=== PATIENT | male | born 1955 | race Caucasian/White ===

== ENCOUNTER 2017-04-09 08:53 | Inpatient (IN) | payer MEDICARE, SELFPAY ==
[~2017-04-09] VITALS: Ht 160 cm; Wt 102.3 kg
[~2017-04-09 08:53] MED LIST: ALBIPROI; ALBIPROI INH; ALBU.083IS; ALBU.083IS IH; ALBU3IS INH; ALBU90OI INH; ALBU90OI6 INH; ALBUIS IH; ALPR.25; AMOX1XR PO; ASPI81CH PO; AZIT250 PO; AZIT500 PO; BENZ100A PO; BUDE6HFA INH; CEPH500 PO; CIPR500 PO; CLIN300 PO; CLON1 PO; DIAZ2 PO; DULO60 PO; DUTA.5 PO; FLUC100 PO; FURO40 PO; GABA300; GABA300 PO; GEMF600 PO; GLIM2 PO; GLIP10 PO; GLIP5 PO; GLYB5 PO; GUAI600T33 PO; HYDACE10B PO; HYDACE5; HYDACE5 PO; HYDCHL25 PO; IBUP400 PO; INSDET100 SC; INSDET100 SQ; INSN100I SC; INSR10I SC; INSUASPI SC; IPRAIS NEB; LIDO5TP TOP; LIRA0.6P INJ; LISI10 PO; LISI5 PO; LORA.5 PO; LORA1 PO; LORA2 PO; METO5 PO; METPRE4DP PO; MONT10T PO; MUPI2TO TOP; NEBULIZER INH; NEUROPATHIC CREAM TOP; NITR.4SL SL; NITR.4TPA TOP; NITR.6SL SL; NYST100SU MT; Norco 10-325 T1 EACH PO; OMEP20ER PO; OXYACE5T PO; OXYGEN; OXYGEN INH; OXYGEN USE; PARO10 PO; PIOG15 PO; POLY17UD PO; PRED10 PO; PRED20 PO; PREG200 PO; RANI150 PO; SALMOI6.5 INH; SPIR25 PO; SULTRIDS PO; SYMBACORT INH; Saw Palmetto500 MG PO; TAMS.4ER PO; TERA5 PO; TETR250; TOPICAL CREAM TOP; Vibramycin100 MG PO; [UNRECOGNIZED DRUG - MIXTURE]
[2017-04-09 09:42] LABS: BASOPHILS ABSOLUTE AUTO 0.01 K/mm3 (0.00-0.23); BASOPHILS PERCENT AUTO 0 % (0-2); EOSINOPHILS ABSOLUTE AUTO 0.01 K/mm3 (0.00-0.68); EOSINOPHILS PERCENT AUTO 0 % (0-6); Hematocrit 40.5 % (37.0-53.0); Hemoglobin 13.1 g/dL (13.5-17.5); IMMATURE GRAN ABSOLUTE AUTO 0.08 K/mm3 (0.00-0.10); IMMATURE GRAN PERCENT AUTO 1 % (0-1); LYMPHOCYTES ABSOLUTE AUTO 0.69 K/mm3 (0.84-5.20); LYMPHOCYTES PERCENT AUTO 6 % (21-46); MONOCYTES ABSOLUTE AUTO 1.28 K/mm3 (0.16-1.47); MONOCYTES PERCENT AUTO 11 % (4-13); Mean Corpuscular HGB Conc 32.3 g/dL (31.5-36.5); Mean Corpuscular Volume 93 fL (80-100); Mean Platelet Volume 10.1 fL (9.1-12.4); NEUTROPHILS PERCENT AUTO 82 % (41-73); Platelet Count 266 K/mm3 (150-400); RDW Coefficient Variation 14.3 % (11.7-14.2); RDW Standard Deviation 48.3 fL (35.1-46.3); Red Blood Cell Count 4.37 M/mm3 (4.30-5.90); White Blood Cell Count 11.27 K/mm3 (4.00-11.30)
[2017-04-09] MEDS ORDERED: NYST100000 (09:46)
[2017-04-09] MEDS ORDERED: BUDE6HFA INH (09:47)
[2017-04-09] MEDS ORDERED: LEVA1.25 INH (09:47)
[2017-04-09] MEDS ORDERED: PRED10 PO (09:47)
[2017-04-09] MEDS ORDERED: TRADJENTA5 MG PO (09:48)
[2017-04-09] MEDS ORDERED: ASPI81CH PO (09:48)
[2017-04-09] MEDS ORDERED: TOPI100 PO (09:48)
[2017-04-09] MEDS ORDERED: Zanaflex4 MG PO (09:49)
[2017-04-09] MEDS ORDERED: TAMS.4ER PO (09:49)
[2017-04-09] MEDS ORDERED: FURO40 PO (09:49)
[2017-04-09] MEDS ORDERED: GLIP10 PO (09:49)
[2017-04-09] MEDS ORDERED: Saw Palmetto500 MG PO (09:50)
[2017-04-09] MEDS ORDERED: SPIR25 PO (09:50)
[2017-04-09] MEDS ORDERED: COMBIVENT RESPIM4 GM INH (09:50)
[2017-04-09] MEDS ORDERED: ALBU3IS INH (09:51)
[2017-04-09] MEDS ORDERED: INSDET100 SC (09:51)
[2017-04-09] MEDS ORDERED: MONT10T PO (09:51)
[2017-04-09] MEDS ORDERED: Omeprazole20 M1 PO (09:51)
[2017-04-09] MEDS ORDERED: Humalog100 UNIT/1 SC (09:52)
[2017-04-09 10:01] LABS: Influenza A Positive (NEGATIVE); Influenza B Negative (NEGATIVE)
[2017-04-09 10:05] LABS: Troponin I <0.015 ng/mL (0.000-0.040)
[2017-04-09 10:27] LABS: PCO2 Arterial 50.8 mmHg (35-45); PO2 Arterial 73.4 mmHg (80-100); pH Blood Arterial 7.28 (7.35-7.45)
[2017-04-09 10:30] LABS: Anion Gap 8 mmol/L (6-16); Blood Urea Nitrogen 21 mg/dL (8-24); Bun/Creatinine Ratio 19.8 (12.0-20.0); CO2, Blood 26 mmol/L (21-32); Calcium, Blood 8.6 mg/dL (8.5-10.1); Chloride, Blood 105 mmol/L (98-108); Creatinine, Blood 1.06 mg/dL (0.60-1.20); Glomerular Filtration Rate >60 (60-); Glucose, Blood 192 mg/dL (70-99); Potassium, Blood 4.5 mmol/L (3.5-5.5); Sodium, Blood 139 mmol/L (136-145)
[2017-04-09 13:45] LABS: International Normalized Ratio 1.03; Prothrombin Time Results 10.7 Sec (9.7-11.5)
[2017-04-09 14:46] LABS: Appearance, Urine Clear (Clear); Bilirubin, Urine Neg (Neg); Blood, Urine 2+ (Neg); Color, Urine Yellow (P-Yellow); Glucose Qualitative, Urine 4+ (Neg); Ketones, Urine Neg (Neg); Leukocyte Esterase, Urine Neg (Neg); Nitrite, Urine Neg (Neg); Protein, Urine 1+ (Neg); Urobilinogen, Urine NORM (Normal)
[2017-04-09 15:19] LABS: Bacteria Rare /hpf; Red Blood Cells, Urine 0-2 /hpf (0-2); Squamous Epithelial Cells Rare /hpf (Few); White Blood Cells, Urine 0-2 /hpf (0-5)
[2017-04-10 04:01] LABS: BASOPHILS PERCENT AUTO 0 % (0-2); EOSINOPHILS PERCENT AUTO 0 % (0-6); Hematocrit 36.2 % (37.0-53.0); Hemoglobin 11.6 g/dL (13.5-17.5); IMMATURE GRAN ABSOLUTE AUTO 0.04 K/mm3 (0.00-0.10); IMMATURE GRAN PERCENT AUTO 0 % (0-1); LYMPHOCYTES ABSOLUTE AUTO 0.66 K/mm3 (0.84-5.20); LYMPHOCYTES PERCENT AUTO 7 % (21-46); MONOCYTES ABSOLUTE AUTO 0.45 K/mm3 (0.16-1.47); MONOCYTES PERCENT AUTO 5 % (4-13); Mean Corpuscular HGB 29.7 pg (26.0-34.0); Mean Corpuscular Volume 93 fL (80-100); Mean Platelet Volume 9.9 fL (9.1-12.4); NEUTROPHILS ABSOLUTE AUTO 8.34 K/mm3 (1.96-9.15); NEUTROPHILS PERCENT AUTO 88 % (41-73); Platelet Count 237 K/mm3 (150-400); RDW Coefficient Variation 14.6 % (11.7-14.2); RDW Standard Deviation 49.6 fL (35.1-46.3); White Blood Cell Count 9.49 K/mm3 (4.00-11.30)
[2017-04-10 04:16] LABS: Anion Gap 5 mmol/L (6-16); Blood Urea Nitrogen 24 mg/dL (8-24); Bun/Creatinine Ratio 31.1 (12.0-20.0); CO2, Blood 28 mmol/L (21-32); Calcium, Blood 7.9 mg/dL (8.5-10.1); Chloride, Blood 108 mmol/L (98-108); Creatinine, Blood 0.77 mg/dL (0.60-1.20); Glomerular Filtration Rate >60 (60-); Glucose, Blood 206 mg/dL (70-99); Potassium, Blood 4.5 mmol/L (3.5-5.5); Sodium, Blood 141 mmol/L (136-145)
[2017-04-10 05:33] LABS: PCO2 Arterial 50.5 mmHg (35-45); pH Blood Arterial 7.34 (7.35-7.45)
[2017-04-11 03:49] LABS: BASOPHILS PERCENT AUTO 0 % (0-2); EOSINOPHILS PERCENT AUTO 0 % (0-6); Hematocrit 37.6 % (37.0-53.0); Hemoglobin 12.2 g/dL (13.5-17.5); IMMATURE GRAN ABSOLUTE AUTO 0.08 K/mm3 (0.00-0.10); IMMATURE GRAN PERCENT AUTO 1 % (0-1); LYMPHOCYTES ABSOLUTE AUTO 0.89 K/mm3 (0.84-5.20); LYMPHOCYTES PERCENT AUTO 6 % (21-46); MONOCYTES ABSOLUTE AUTO 0.82 K/mm3 (0.16-1.47); MONOCYTES PERCENT AUTO 6 % (4-13); Mean Corpuscular HGB 29.8 pg (26.0-34.0); Mean Corpuscular HGB Conc 32.4 g/dL (31.5-36.5); Mean Corpuscular Volume 92 fL (80-100); NEUTROPHILS ABSOLUTE AUTO 13.17 K/mm3 (1.96-9.15); NEUTROPHILS PERCENT AUTO 88 % (41-73); Platelet Count 254 K/mm3 (150-400); RDW Coefficient Variation 14.1 % (11.7-14.2); RDW Standard Deviation 47.3 fL (35.1-46.3); White Blood Cell Count 14.96 K/mm3 (4.00-11.30)
[2017-04-11 04:06] LABS: Anion Gap 7 mmol/L (6-16); Blood Urea Nitrogen 35 mg/dL (8-24); Bun/Creatinine Ratio 34.7 (12.0-20.0); CO2, Blood 29 mmol/L (21-32); Calcium, Blood 8.2 mg/dL (8.5-10.1); Chloride, Blood 103 mmol/L (98-108); Creatinine, Blood 1.01 mg/dL (0.60-1.20); Glomerular Filtration Rate >60 (60-); Glucose, Blood 305 mg/dL (70-99); Potassium, Blood 4.2 mmol/L (3.5-5.5); Sodium, Blood 139 mmol/L (136-145)
[2017-04-11] MEDS ORDERED: Tamiflu75 MG PO (09:23)
== END 2017-04-11 10:30 | disposition home or self-care (01) | DRG 871 ==
LOC: ER 08:53 → ICUE 11:10 → ICUW 11:10 → ICUE 12:46
PROVIDERS: Emergency Medicine; Internal Medicine
DX: A41.9 Sepsis, unspecified organism (principal); J96.02 Acute respiratory failure with hypercapnia; E87.2 Acidosis; J44.1 Chronic obstructive pulmonary disease with (acute) exacerbation; B37.0 Candidal stomatitis; Z68.41 Body mass index [BMI] 40.0-44.9, adult; E66.01 Morbid (severe) obesity due to excess calories; J11.1 Influenza due to unidentified influenza virus with other respiratory manifestations; G47.30 Sleep apnea, unspecified; E11.42 Type 2 diabetes mellitus with diabetic polyneuropathy; Z99.81 Dependence on supplemental oxygen; I10 Essential (primary) hypertension; I25.10 Atherosclerotic heart disease of native coronary artery without angina pectoris; K21.9 Gastro-esophageal reflux disease without esophagitis; R65.20 Severe sepsis without septic shock; F17.200 Nicotine dependence, unspecified, uncomplicated; E66.9 Obesity, unspecified; Z89.412 Acquired absence of left great toe; Z88.1 Allergy status to other antibiotic agents; Z88.8 Allergy status to other drugs, medicaments and biological substances; Z79.84 Long term (current) use of oral hypoglycemic drugs; Z79.82 Long term (current) use of aspirin; Z79.4 Long term (current) use of insulin; Z79.52 Long term (current) use of systemic steroids; Z79.899 Other long term (current) drug therapy
CPT/HCPCS: 36415; 36600; 71045; 80048; 81001; 82010; 82803; 82947; 83605; 84484; 85025; 85610; 85730; 87040; 87070; 87205; 87804; 93005; 93010; 94640; 94644; 94660; 96361; 96374; 96375; 99285; C9113; J0696; J1650; J1815; J2060; J2930; J7030

== ENCOUNTER 2018-12-26 06:56 | Day surgery (SDC) | payer MEDICARE, OTHER ==
[~2018-12-26] VITALS: Ht 162.6 cm; Wt 101.0 kg
[~2018-12-26 06:56] MED LIST changes: +B-122500 MCG SL; +COMBIVENT RESPIM4 GM INH; +Humalog100 UNIT/1 SC; +LEVA1.25 INH; +NYST100000; +Omeprazole20 M1 PO; +TOPI100 PO; +TRADJENTA5 MG PO; +Tamiflu75 MG PO; +VITAMIN D35000 UNIT PO; +Vitamin E400 UNI4 PO; +Zanaflex4 MG PO
[2018-12-26] MEDS ORDERED: CLOP75 PO (11:20)
--- NOTE | 2018-12-26 13:50 | NUR ---
RIGHT GROIN SITE STABLE. PT VERBALIZED UNDERSTANDING OF D/C INSTRUCTIONS. SITE SOFT NON TENDER WITH NO BLEEDING, OOZING, OR PAIN NOTED. TEGADERM INTACT. PT ALSO PRESENT DURING DISCHARGE INSTRUCTIONS. DR SWENSON (ORTHO) CALLED PRIOR TO DISCHARGING PT HOME. PT IS SUPPOSED TO HAVE TOES REMOVED FROM LEFT FOOT ON TUESDAY THIS WEEK 12/29/18, PT HAS ALSO BEEN STARTED ON PLAVIX. PER DR SWENSON PT NEEDS TO START PLAVIX ON TUESDAY AFTER HIS SURGERY. PT HAS BEEN INFORMED, NEW MEDICATION CALLED INTO PHARMACY FOR PT. OTHER DISCHARGE INSTRUCTIONS PROVIDED TO PT IN [facility]. IV REMOVED FROM LFA WITH CATH INTACT, PRESSURE DRESSING APPLIED. PT TAKEN OUT TO PRIVATE VEHICLE VIA W/C NADN AT TIME OF DISCHARGE.
[2019-01-08] MEDS ORDERED: TIZA4 PO (11:56)
[2019-01-08] MEDS ORDERED: TOPI100 PO (11:56)
== END 2018-12-26 13:50 | disposition home or self-care (01) ==
LOC: MHTC 06:56
DX: E11.51 Type 2 diabetes mellitus with diabetic peripheral angiopathy without gangrene (principal); I70.222 Atherosclerosis of native arteries of extremities with rest pain, left leg; I10 Essential (primary) hypertension; I25.10 Atherosclerotic heart disease of native coronary artery without angina pectoris; J44.9 Chronic obstructive pulmonary disease, unspecified; F41.9 Anxiety disorder, unspecified; F32.9 Major depressive disorder, single episode, unspecified; K21.9 Gastro-esophageal reflux disease without esophagitis; N40.0 Benign prostatic hyperplasia without lower urinary tract symptoms; G47.33 Obstructive sleep apnea (adult) (pediatric); Z88.8 Allergy status to other drugs, medicaments and biological substances; Z79.4 Long term (current) use of insulin; Z79.899 Other long term (current) drug therapy; Z79.82 Long term (current) use of aspirin
CPT/HCPCS: 37221; 37226; 37228; 37232; 75625; 75716; 75774; 82947; 85347; 99152; 99153; C1725; C1760; C1769; C1874; C1876; C1887; C1894; C2623; J1644; J2250; J3010; J7030; Q9967

== ENCOUNTER 2018-12-29 09:02 | Day surgery (SDC) | payer MEDICARE, OTHER ==
[~2018-12-29] VITALS: Ht 160 cm; Wt 108.7 kg
[~2018-12-29 09:02] MED LIST changes: +CLOP75 PO
[2018-12-29] MEDS ORDERED: NYST100000 PO (10:41)
[2018-12-29] MEDS ORDERED: PIOG15 PO (10:42)
[2019-01-08] MEDS ORDERED: TIZA4 PO (11:56)
[2019-01-08] MEDS ORDERED: TOPI100 PO (11:56)
== END 2018-12-29 12:30 | disposition home or self-care (01) ==
LOC: ORSCSDS 09:02
PROVIDERS: Podiatrist Foot & Ankle Surgery
PROC: 0Y6N0Z9 Detachment at Left Foot, Partial 1st Ray, Open Approach (ICD-10-PCS; principal; 2018-12-29 10:30)
PROC: 0Y6N0ZD Detachment at Left Foot, Partial 4th Ray, Open Approach (ICD-10-PCS; principal; 2018-12-29 10:30)
PROC: 0Y6N0ZF Detachment at Left Foot, Partial 5th Ray, Open Approach (ICD-10-PCS; principal; 2018-12-29 10:30)
PROC: 0Y6N0ZB Detachment at Left Foot, Partial 2nd Ray, Open Approach (ICD-10-PCS; principal; 2018-12-29 10:30)
PROC: 0Y6N0ZC Detachment at Left Foot, Partial 3rd Ray, Open Approach (ICD-10-PCS; principal; 2018-12-29 10:30)
DX: M86.9 Osteomyelitis, unspecified (principal); E11.621 Type 2 diabetes mellitus with foot ulcer; E11.52 Type 2 diabetes mellitus with diabetic peripheral angiopathy with gangrene; I96 Gangrene, not elsewhere classified; I25.10 Atherosclerotic heart disease of native coronary artery without angina pectoris; J44.9 Chronic obstructive pulmonary disease, unspecified; G47.33 Obstructive sleep apnea (adult) (pediatric); Z99.81 Dependence on supplemental oxygen; F17.210 Nicotine dependence, cigarettes, uncomplicated; E66.01 Morbid (severe) obesity due to excess calories; Z68.41 Body mass index [BMI] 40.0-44.9, adult; Z79.4 Long term (current) use of insulin; Z79.899 Other long term (current) drug therapy
CPT/HCPCS: 82947; 88307; 88311; J0171; J0690; J2250; J2704; J3010; J7120

== ENCOUNTER 2019-01-09 06:50 | Day surgery (SDC) | payer MEDICARE ==
[~2019-01-09] VITALS: Ht 162.6 cm; Wt 101.0 kg
[~2019-01-09 06:50] MED LIST changes: +NYST100000 PO; +TIZA4 PO
--- NOTE | 2019-01-09 13:30 | NUR ---
PT SITTING UP WITH HOB AT 30, SITE UNCHANGED.
--- NOTE | 2019-01-09 13:46 | NUR ---
PT AND VERBALIZED UNDERSTANDING OF WRITTEN AND VERBAL D/C INST. -BLEEDING OR SWELLING L GROIN AREA. IV REMOVED. PT TAKEN OUT OF THE HRT CENTER VIA W/C.
== END 2019-01-09 14:00 | disposition home or self-care (01) ==
LOC: MHTC 06:50
DX: I70.201 Unspecified atherosclerosis of native arteries of extremities, right leg (principal); E13.59 Other specified diabetes mellitus with other circulatory complications; J44.9 Chronic obstructive pulmonary disease, unspecified; I10 Essential (primary) hypertension; Z88.8 Allergy status to other drugs, medicaments and biological substances; Z88.5 Allergy status to narcotic agent; Z89.429 Acquired absence of other toe(s), unspecified side
CPT/HCPCS: 37227; 37228; 37232; 75716; 75774; 82947; 85347; 99152; 99153; C1714; C1725; C1760; C1769; C1874; C1884; C1887; C1894; C2623; J1644; J2250; J3010; J7030; Q9967

== ENCOUNTER 2019-03-22 06:40 | Day surgery (SDC) | payer MEDICARE, OTHER ==
[~2019-03-22] VITALS: Ht 162.6 cm; Wt 108.0 kg
[2019-03-22] MEDS ORDERED: VARE1 PO (07:10)
--- NOTE | 2019-03-22 12:12 | NUR ---
PT UNABLE TO URINATE WITH URINAL WHILE LAYING DOWN FLAT. PT ATTEMPTED TO REPOSITION, WAS STILL UNABLE TO URINATE. PER ORDERS PT WAS STRAIGHT CATHED USING STERILE TECHNIQUE WITH 14F COUDE CACERES. PT TOLERATES WELL. APPROX 400CC OF CLEAR, YELLOW URINE NOTED. VSS. NADN. PT R FEMORAL SITE REMAINS CLEAR. CALL LIGHT WITHIN REACH.
--- NOTE | 2019-03-22 13:13 | NUR ---
PT ASSISTED WITH DRESSING SELF. R FEM SITE REMAINS CLEAR. PT AND S/O VERBALIZES UNDERSTANDING WRITTEN AND VERBAL ORDERS. PT IV DC'D. CATH INTACT. PRESSURE DSG APPLIED. PT DC TO HOME VIA S/O WITH WC.
== END 2019-03-22 13:15 | disposition home or self-care (01) ==
LOC: MHTC 06:40
DX: E11.51 Type 2 diabetes mellitus with diabetic peripheral angiopathy without gangrene (principal); E11.40 Type 2 diabetes mellitus with diabetic neuropathy, unspecified; J44.9 Chronic obstructive pulmonary disease, unspecified; I25.10 Atherosclerotic heart disease of native coronary artery without angina pectoris; F41.9 Anxiety disorder, unspecified; F32.9 Major depressive disorder, single episode, unspecified; K21.9 Gastro-esophageal reflux disease without esophagitis; N40.0 Benign prostatic hyperplasia without lower urinary tract symptoms; G47.33 Obstructive sleep apnea (adult) (pediatric); F17.210 Nicotine dependence, cigarettes, uncomplicated; I10 Essential (primary) hypertension; Z95.5 Presence of coronary angioplasty implant and graft; Z88.1 Allergy status to other antibiotic agents; Z88.5 Allergy status to narcotic agent; Z88.8 Allergy status to other drugs, medicaments and biological substances; Z79.4 Long term (current) use of insulin; Z79.52 Long term (current) use of systemic steroids; Z79.82 Long term (current) use of aspirin; Z79.02 Long term (current) use of antithrombotics/antiplatelets; Z79.51 Long term (current) use of inhaled steroids; Z79.899 Other long term (current) drug therapy
CPT/HCPCS: 37229; 37232; 75716; 75774; 76937; 85347; 99152; 99153; C1724; C1725; C1760; C1769; C1887; C1894; J1644; J2250; J3010; J7030; Q9967

== ENCOUNTER 2019-05-02 00:21 | Day surgery (SDC) | payer MEDICARE, OTHER ==
[~2019-05-02 00:21] MED LIST changes: +VARE1 PO
== END 2019-05-02 23:04 | disposition home or self-care (01) ==
LOC: WOUND 00:21
DX: E11.621 Type 2 diabetes mellitus with foot ulcer (principal); E11.42 Type 2 diabetes mellitus with diabetic polyneuropathy; L97.526 Non-pressure chronic ulcer of other part of left foot with bone involvement without evidence of necrosis; F17.210 Nicotine dependence, cigarettes, uncomplicated; J44.9 Chronic obstructive pulmonary disease, unspecified; I10 Essential (primary) hypertension; E11.51 Type 2 diabetes mellitus with diabetic peripheral angiopathy without gangrene; F41.9 Anxiety disorder, unspecified; F32.9 Major depressive disorder, single episode, unspecified; G47.33 Obstructive sleep apnea (adult) (pediatric); Z79.4 Long term (current) use of insulin; Z88.5 Allergy status to narcotic agent; Z88.8 Allergy status to other drugs, medicaments and biological substances; Z79.899 Other long term (current) drug therapy; Z79.82 Long term (current) use of aspirin
CPT/HCPCS: 87070; 87075; 87205; G0463

== ENCOUNTER 2019-05-09 00:16 | Day surgery (SDC) | payer MEDICARE, OTHER | END 2019-05-09 22:52 | disposition home or self-care (01) | LOC: WOUND 00:16 | DX: E11.621 Type 2 diabetes mellitus with foot ulcer (principal); E11.51 Type 2 diabetes mellitus with diabetic peripheral angiopathy without gangrene; L97.522 Non-pressure chronic ulcer of other part of left foot with fat layer exposed; Z79.4 Long term (current) use of insulin ==

== ENCOUNTER 2019-05-17 06:28 | Day surgery (SDC) | payer MEDICARE, OTHER ==
[~2019-05-17] VITALS: Ht 162.6 cm; Wt 101.0 kg
--- NOTE | 2019-05-17 12:17 | NUR ---
PT STOOD UP TO BEDISIDE AND USED URINAL, VOIDED 300 ML'S CLEAR YELLOW URINE. LEFT GROIN SITE SOFT WITHOUT HEMATOMA OR TENDERNESS.
--- NOTE | 2019-05-17 13:03 | NUR ---
DISCHARGE GONE OVER WITH AND PT, BOTH VERBALIZE UNDERSTANDING. SALINE LOCK OUT WITH CATHETER INTACT. PT L GROIN SITE STABLE. PT DRESSED WITH ASSISTANCE OF . PT TO PRIVATE VEHICLE PER ESCORT.
== END 2019-05-17 13:06 | disposition home or self-care (01) ==
LOC: MHTC 06:28
DX: E11.51 Type 2 diabetes mellitus with diabetic peripheral angiopathy without gangrene (principal); L97.529 Non-pressure chronic ulcer of other part of left foot with unspecified severity; I70.245 Atherosclerosis of native arteries of left leg with ulceration of other part of foot; J44.9 Chronic obstructive pulmonary disease, unspecified; I10 Essential (primary) hypertension; E11.42 Type 2 diabetes mellitus with diabetic polyneuropathy; F41.9 Anxiety disorder, unspecified; F32.9 Major depressive disorder, single episode, unspecified; Z79.4 Long term (current) use of insulin; F17.210 Nicotine dependence, cigarettes, uncomplicated; Z88.5 Allergy status to narcotic agent; Z88.8 Allergy status to other drugs, medicaments and biological substances; Z79.82 Long term (current) use of aspirin; Z79.02 Long term (current) use of antithrombotics/antiplatelets; Z79.899 Other long term (current) drug therapy
CPT/HCPCS: 85347; 99152; 99153; C1725; C1769; C1887; C1894; J0360; J1200; J1644; J2250; J3010; J7030; Q9967

== ENCOUNTER 2019-05-23 00:29 | Day surgery (SDC) | payer MEDICARE, OTHER | END 2019-05-23 22:49 | disposition home or self-care (01) | LOC: WOUND 00:29 | DX: E11.621 Type 2 diabetes mellitus with foot ulcer (principal); E11.42 Type 2 diabetes mellitus with diabetic polyneuropathy; L97.526 Non-pressure chronic ulcer of other part of left foot with bone involvement without evidence of necrosis; J44.9 Chronic obstructive pulmonary disease, unspecified; I10 Essential (primary) hypertension; E11.51 Type 2 diabetes mellitus with diabetic peripheral angiopathy without gangrene; F41.9 Anxiety disorder, unspecified; F32.9 Major depressive disorder, single episode, unspecified; F17.200 Nicotine dependence, unspecified, uncomplicated; G47.33 Obstructive sleep apnea (adult) (pediatric); Z79.4 Long term (current) use of insulin; Z79.899 Other long term (current) drug therapy; Z79.82 Long term (current) use of aspirin ==

== ENCOUNTER 2019-05-30 03:13 | Day surgery (SDC) | payer MEDICARE, OTHER | END 2019-05-30 22:49 | disposition home or self-care (01) | LOC: WOUND 03:13 | DX: E11.621 Type 2 diabetes mellitus with foot ulcer (principal); E11.42 Type 2 diabetes mellitus with diabetic polyneuropathy; F41.9 Anxiety disorder, unspecified; F32.9 Major depressive disorder, single episode, unspecified; J44.9 Chronic obstructive pulmonary disease, unspecified; I10 Essential (primary) hypertension; G47.33 Obstructive sleep apnea (adult) (pediatric); E11.51 Type 2 diabetes mellitus with diabetic peripheral angiopathy without gangrene; F17.200 Nicotine dependence, unspecified, uncomplicated; L97.429 Non-pressure chronic ulcer of left heel and midfoot with unspecified severity; L97.523 Non-pressure chronic ulcer of other part of left foot with necrosis of muscle; Z79.899 Other long term (current) drug therapy; Z79.82 Long term (current) use of aspirin; Z79.84 Long term (current) use of oral hypoglycemic drugs | CPT/HCPCS: 87071; 87075; 87205 ==

== ENCOUNTER 2019-06-06 | Day surgery (SDC) | payer MEDICARE, OTHER | END 2019-06-12 22:42 | disposition home or self-care (01) | LOC: WOUND | DX: E11.621 Type 2 diabetes mellitus with foot ulcer (principal); E11.42 Type 2 diabetes mellitus with diabetic polyneuropathy; I70.245 Atherosclerosis of native arteries of left leg with ulceration of other part of foot; F41.9 Anxiety disorder, unspecified; F32.9 Major depressive disorder, single episode, unspecified; J44.9 Chronic obstructive pulmonary disease, unspecified; E11.51 Type 2 diabetes mellitus with diabetic peripheral angiopathy without gangrene; G47.33 Obstructive sleep apnea (adult) (pediatric); L97.523 Non-pressure chronic ulcer of other part of left foot with necrosis of muscle; M86.672 Other chronic osteomyelitis, left ankle and foot; L97.429 Non-pressure chronic ulcer of left heel and midfoot with unspecified severity; Z79.4 Long term (current) use of insulin; Z79.899 Other long term (current) drug therapy; Z79.82 Long term (current) use of aspirin ==

== ENCOUNTER 2019-06-13 00:15 | Day surgery (SDC) | payer MEDICARE, OTHER | END 2019-06-13 23:12 | disposition home or self-care (01) | LOC: WOUND 00:15 | DX: E11.621 Type 2 diabetes mellitus with foot ulcer (principal); E11.51 Type 2 diabetes mellitus with diabetic peripheral angiopathy without gangrene; I70.245 Atherosclerosis of native arteries of left leg with ulceration of other part of foot; L97.526 Non-pressure chronic ulcer of other part of left foot with bone involvement without evidence of necrosis; E11.42 Type 2 diabetes mellitus with diabetic polyneuropathy; J44.9 Chronic obstructive pulmonary disease, unspecified; F41.9 Anxiety disorder, unspecified; F32.9 Major depressive disorder, single episode, unspecified; I10 Essential (primary) hypertension; G47.33 Obstructive sleep apnea (adult) (pediatric); Z79.4 Long term (current) use of insulin; Z79.899 Other long term (current) drug therapy; Z79.82 Long term (current) use of aspirin ==

== ENCOUNTER 2019-06-19 08:32 | Day surgery (SDC) | payer MEDICARE, OTHER | END 2019-06-19 22:45 | disposition home or self-care (01) | LOC: HBO 08:32 | DX: E11.621 Type 2 diabetes mellitus with foot ulcer (principal); L97.523 Non-pressure chronic ulcer of other part of left foot with necrosis of muscle; M86.672 Other chronic osteomyelitis, left ankle and foot; L97.429 Non-pressure chronic ulcer of left heel and midfoot with unspecified severity; E11.51 Type 2 diabetes mellitus with diabetic peripheral angiopathy without gangrene; Z79.899 Other long term (current) drug therapy; Z79.4 Long term (current) use of insulin | CPT/HCPCS: 82947; G0277 ==

== ENCOUNTER 2019-06-20 00:28 | Day surgery (SDC) | payer MEDICARE, OTHER | END 2019-06-20 22:41 | disposition home or self-care (01) | LOC: HBO 00:28 | DX: E11.621 Type 2 diabetes mellitus with foot ulcer (principal); E11.51 Type 2 diabetes mellitus with diabetic peripheral angiopathy without gangrene; L97.523 Non-pressure chronic ulcer of other part of left foot with necrosis of muscle; M86.672 Other chronic osteomyelitis, left ankle and foot; L97.429 Non-pressure chronic ulcer of left heel and midfoot with unspecified severity; Z79.4 Long term (current) use of insulin | CPT/HCPCS: 82947; G0277 ==

== ENCOUNTER 2019-06-21 00:24 | Day surgery (SDC) | payer MEDICARE | END 2019-06-21 23:42 | disposition home or self-care (01) | LOC: HBO 00:24 | DX: E11.621 Type 2 diabetes mellitus with foot ulcer (principal); E11.51 Type 2 diabetes mellitus with diabetic peripheral angiopathy without gangrene; L97.523 Non-pressure chronic ulcer of other part of left foot with necrosis of muscle; M86.672 Other chronic osteomyelitis, left ankle and foot; L97.429 Non-pressure chronic ulcer of left heel and midfoot with unspecified severity; Z79.899 Other long term (current) drug therapy; Z79.4 Long term (current) use of insulin | CPT/HCPCS: 82947; G0277 ==

== ENCOUNTER 2019-06-21 08:12 | Day surgery (SDC) | payer MEDICARE | END 2019-06-21 23:42 | disposition home or self-care (01) | LOC: WOUND 08:12 | DX: E11.621 Type 2 diabetes mellitus with foot ulcer (principal); L97.523 Non-pressure chronic ulcer of other part of left foot with necrosis of muscle; E11.51 Type 2 diabetes mellitus with diabetic peripheral angiopathy without gangrene; M86.672 Other chronic osteomyelitis, left ankle and foot; L97.429 Non-pressure chronic ulcer of left heel and midfoot with unspecified severity; E11.42 Type 2 diabetes mellitus with diabetic polyneuropathy; J44.9 Chronic obstructive pulmonary disease, unspecified; F41.9 Anxiety disorder, unspecified; F32.9 Major depressive disorder, single episode, unspecified; F17.200 Nicotine dependence, unspecified, uncomplicated; I10 Essential (primary) hypertension; G47.33 Obstructive sleep apnea (adult) (pediatric); Z79.4 Long term (current) use of insulin; Z79.899 Other long term (current) drug therapy; Z79.82 Long term (current) use of aspirin | CPT/HCPCS: 87071; 87075; 87205 ==

== ENCOUNTER 2019-06-25 09:20 | Day surgery (SDC) | payer MEDICARE, OTHER | END 2019-06-25 22:37 | disposition home or self-care (01) | LOC: HBO 09:20 | DX: E11.621 Type 2 diabetes mellitus with foot ulcer (principal); L97.523 Non-pressure chronic ulcer of other part of left foot with necrosis of muscle; E11.69 Type 2 diabetes mellitus with other specified complication; M86.672 Other chronic osteomyelitis, left ankle and foot; L97.429 Non-pressure chronic ulcer of left heel and midfoot with unspecified severity; E11.51 Type 2 diabetes mellitus with diabetic peripheral angiopathy without gangrene; Z79.02 Long term (current) use of antithrombotics/antiplatelets; Z79.4 Long term (current) use of insulin; Z79.51 Long term (current) use of inhaled steroids; Z79.52 Long term (current) use of systemic steroids; Z79.82 Long term (current) use of aspirin; Z79.899 Other long term (current) drug therapy; Z89.432 Acquired absence of left foot | CPT/HCPCS: 82947; G0277 ==

== ENCOUNTER 2019-06-26 00:08 | Day surgery (SDC) | payer MEDICARE, OTHER | END 2019-06-26 22:47 | disposition home or self-care (01) | LOC: HBO 00:08 | DX: E11.621 Type 2 diabetes mellitus with foot ulcer (principal); E11.51 Type 2 diabetes mellitus with diabetic peripheral angiopathy without gangrene; L97.523 Non-pressure chronic ulcer of other part of left foot with necrosis of muscle; M86.672 Other chronic osteomyelitis, left ankle and foot; L97.429 Non-pressure chronic ulcer of left heel and midfoot with unspecified severity; Z79.899 Other long term (current) drug therapy; Z79.82 Long term (current) use of aspirin; Z79.4 Long term (current) use of insulin | CPT/HCPCS: 82947; G0277 ==

== ENCOUNTER 2019-06-27 00:36 | Day surgery (SDC) | payer MEDICARE, OTHER | END 2019-06-27 22:37 | disposition home or self-care (01) | LOC: HBO 00:36 | DX: E11.621 Type 2 diabetes mellitus with foot ulcer (principal); E11.69 Type 2 diabetes mellitus with other specified complication; E11.51 Type 2 diabetes mellitus with diabetic peripheral angiopathy without gangrene; M86.672 Other chronic osteomyelitis, left ankle and foot; I73.9 Peripheral vascular disease, unspecified; L97.523 Non-pressure chronic ulcer of other part of left foot with necrosis of muscle; L97.429 Non-pressure chronic ulcer of left heel and midfoot with unspecified severity | CPT/HCPCS: 82947; G0277 ==

== ENCOUNTER 2019-06-27 00:37 | Day surgery (SDC) | payer MEDICARE, OTHER | END 2019-06-27 22:37 | disposition home or self-care (01) | LOC: WOUND 00:37 | DX: E11.621 Type 2 diabetes mellitus with foot ulcer (principal); E11.51 Type 2 diabetes mellitus with diabetic peripheral angiopathy without gangrene; E11.42 Type 2 diabetes mellitus with diabetic polyneuropathy; L97.523 Non-pressure chronic ulcer of other part of left foot with necrosis of muscle; M86.672 Other chronic osteomyelitis, left ankle and foot; L97.429 Non-pressure chronic ulcer of left heel and midfoot with unspecified severity; J44.9 Chronic obstructive pulmonary disease, unspecified; G47.33 Obstructive sleep apnea (adult) (pediatric); F17.200 Nicotine dependence, unspecified, uncomplicated; Z79.4 Long term (current) use of insulin; Z79.899 Other long term (current) drug therapy; Z79.82 Long term (current) use of aspirin ==

== ENCOUNTER 2019-06-28 00:23 | Day surgery (SDC) | payer MEDICARE, OTHER | END 2019-06-28 23:49 | disposition home or self-care (01) | LOC: HBO 00:23 | DX: E11.621 Type 2 diabetes mellitus with foot ulcer (principal); L97.523 Non-pressure chronic ulcer of other part of left foot with necrosis of muscle; M86.672 Other chronic osteomyelitis, left ankle and foot; L97.429 Non-pressure chronic ulcer of left heel and midfoot with unspecified severity; E11.51 Type 2 diabetes mellitus with diabetic peripheral angiopathy without gangrene; Z79.82 Long term (current) use of aspirin; Z79.4 Long term (current) use of insulin; Z79.02 Long term (current) use of antithrombotics/antiplatelets | CPT/HCPCS: 82947; G0277 ==

== ENCOUNTER 2019-06-29 01:09 | Day surgery (SDC) | payer MEDICARE, OTHER | END 2019-06-29 22:47 | disposition home or self-care (01) | LOC: HBO 01:09 | DX: E11.621 Type 2 diabetes mellitus with foot ulcer (principal); L97.523 Non-pressure chronic ulcer of other part of left foot with necrosis of muscle; L97.429 Non-pressure chronic ulcer of left heel and midfoot with unspecified severity; E11.69 Type 2 diabetes mellitus with other specified complication; M86.672 Other chronic osteomyelitis, left ankle and foot; E11.51 Type 2 diabetes mellitus with diabetic peripheral angiopathy without gangrene; Z79.02 Long term (current) use of antithrombotics/antiplatelets; Z79.4 Long term (current) use of insulin; Z79.82 Long term (current) use of aspirin; Z79.899 Other long term (current) drug therapy | CPT/HCPCS: G0463 ==

== ENCOUNTER 2019-07-02 00:11 | Day surgery (SDC) | payer MEDICARE, MEDICAID | END 2019-07-02 23:02 | disposition home or self-care (01) | LOC: HBO 00:11 | DX: E11.621 Type 2 diabetes mellitus with foot ulcer (principal); L97.523 Non-pressure chronic ulcer of other part of left foot with necrosis of muscle; L97.429 Non-pressure chronic ulcer of left heel and midfoot with unspecified severity; E11.69 Type 2 diabetes mellitus with other specified complication; M86.672 Other chronic osteomyelitis, left ankle and foot; E11.51 Type 2 diabetes mellitus with diabetic peripheral angiopathy without gangrene | CPT/HCPCS: 82947; G0277 ==

== ENCOUNTER 2019-07-03 08:41 | Day surgery (SDC) | payer MEDICARE, MEDICAID | END 2019-07-03 22:47 | disposition home or self-care (01) | LOC: WOUND 08:41 | DX: E11.621 Type 2 diabetes mellitus with foot ulcer (principal); L97.523 Non-pressure chronic ulcer of other part of left foot with necrosis of muscle; M86.672 Other chronic osteomyelitis, left ankle and foot; L97.429 Non-pressure chronic ulcer of left heel and midfoot with unspecified severity; E11.51 Type 2 diabetes mellitus with diabetic peripheral angiopathy without gangrene; F32.9 Major depressive disorder, single episode, unspecified; J44.9 Chronic obstructive pulmonary disease, unspecified; I10 Essential (primary) hypertension; G47.33 Obstructive sleep apnea (adult) (pediatric); Z79.4 Long term (current) use of insulin ==

== ENCOUNTER 2019-07-05 00:49 | Day surgery (SDC) | payer MEDICARE, OTHER | END 2019-07-05 22:48 | disposition home or self-care (01) | LOC: HBO 00:49 | DX: E11.621 Type 2 diabetes mellitus with foot ulcer (principal); E11.51 Type 2 diabetes mellitus with diabetic peripheral angiopathy without gangrene; M86.672 Other chronic osteomyelitis, left ankle and foot; L97.429 Non-pressure chronic ulcer of left heel and midfoot with unspecified severity; Z79.82 Long term (current) use of aspirin; Z79.899 Other long term (current) drug therapy; Z79.4 Long term (current) use of insulin | CPT/HCPCS: 82947; G0277 ==

== ENCOUNTER 2019-07-06 00:11 | Day surgery (SDC) | payer MEDICARE, OTHER | END 2019-07-06 22:34 | disposition home or self-care (01) | LOC: WOUND 00:11 | DX: E11.621 Type 2 diabetes mellitus with foot ulcer (principal); L97.523 Non-pressure chronic ulcer of other part of left foot with necrosis of muscle; M86.672 Other chronic osteomyelitis, left ankle and foot; L97.429 Non-pressure chronic ulcer of left heel and midfoot with unspecified severity; E11.51 Type 2 diabetes mellitus with diabetic peripheral angiopathy without gangrene ==

== ENCOUNTER 2019-07-10 00:07 | Day surgery (SDC) | payer MEDICARE, OTHER ==
[2019-07-11] MEDS ORDERED: Sulfamethoxazo1 EAC4 PO (10:27)
[2019-07-11] MEDS ORDERED: Norco 5-325 Ta1 EACH PO (10:28)
[2019-07-11] MEDS ORDERED: VIT D3 PO (10:29)
[2019-07-11] MEDS ORDERED: VIT E PO (10:32)
[2019-07-11] MEDS ORDERED: CHELATED POTASSIUM PO (10:35)
[2019-07-11] MEDS ORDERED: TRADJENTA5 MG PO (10:40)
== END 2019-07-10 22:44 | disposition home or self-care (01) ==
LOC: HBO 00:07
DX: E11.621 Type 2 diabetes mellitus with foot ulcer (principal); E11.51 Type 2 diabetes mellitus with diabetic peripheral angiopathy without gangrene; L97.523 Non-pressure chronic ulcer of other part of left foot with necrosis of muscle; M86.672 Other chronic osteomyelitis, left ankle and foot; L97.429 Non-pressure chronic ulcer of left heel and midfoot with unspecified severity; Z79.82 Long term (current) use of aspirin; Z79.899 Other long term (current) drug therapy; Z79.4 Long term (current) use of insulin
CPT/HCPCS: 82947; G0277

== ENCOUNTER 2019-07-10 09:47 | Day surgery (SDC) | payer MEDICARE, OTHER ==
[2019-07-11] MEDS ORDERED: Sulfamethoxazo1 EAC4 PO (10:27)
[2019-07-11] MEDS ORDERED: Norco 5-325 Ta1 EACH PO (10:28)
[2019-07-11] MEDS ORDERED: VIT D3 PO (10:29)
[2019-07-11] MEDS ORDERED: VIT E PO (10:32)
[2019-07-11] MEDS ORDERED: CHELATED POTASSIUM PO (10:35)
[2019-07-11] MEDS ORDERED: TRADJENTA5 MG PO (10:40)
== END 2019-07-10 22:44 | disposition home or self-care (01) ==
LOC: WOUND 09:47
DX: E11.621 Type 2 diabetes mellitus with foot ulcer (principal); L97.523 Non-pressure chronic ulcer of other part of left foot with necrosis of muscle; E11.51 Type 2 diabetes mellitus with diabetic peripheral angiopathy without gangrene; L97.429 Non-pressure chronic ulcer of left heel and midfoot with unspecified severity; M86.672 Other chronic osteomyelitis, left ankle and foot; J44.9 Chronic obstructive pulmonary disease, unspecified; I10 Essential (primary) hypertension; G47.33 Obstructive sleep apnea (adult) (pediatric); F17.200 Nicotine dependence, unspecified, uncomplicated; E11.42 Type 2 diabetes mellitus with diabetic polyneuropathy; Z79.4 Long term (current) use of insulin; Z79.899 Other long term (current) drug therapy

== ENCOUNTER 2019-07-11 00:23 | Day surgery (SDC) | payer MEDICARE, OTHER ==
[2019-07-11] MEDS ORDERED: Sulfamethoxazo1 EAC4 PO (10:27)
[2019-07-11] MEDS ORDERED: Norco 5-325 Ta1 EACH PO (10:28)
[2019-07-11] MEDS ORDERED: VIT D3 PO (10:29)
[2019-07-11] MEDS ORDERED: VIT E PO (10:32)
[2019-07-11] MEDS ORDERED: CHELATED POTASSIUM PO (10:35)
[2019-07-11] MEDS ORDERED: TRADJENTA5 MG PO (10:40)
== END 2019-07-11 22:38 | disposition home or self-care (01) ==
LOC: HBO 00:23
DX: E11.621 Type 2 diabetes mellitus with foot ulcer (principal); E11.51 Type 2 diabetes mellitus with diabetic peripheral angiopathy without gangrene; L97.429 Non-pressure chronic ulcer of left heel and midfoot with unspecified severity; M86.672 Other chronic osteomyelitis, left ankle and foot; L97.523 Non-pressure chronic ulcer of other part of left foot with necrosis of muscle; Z79.899 Other long term (current) drug therapy; Z79.82 Long term (current) use of aspirin; Z79.4 Long term (current) use of insulin
CPT/HCPCS: 82947; G0277

== ENCOUNTER 2019-07-16 00:12 | Day surgery (SDC) | payer MEDICARE ==
[~2019-07-16 00:12] MED LIST changes: +CHELATED POTASSIUM PO; +Norco 5-325 Ta1 EACH PO; +Sulfamethoxazo1 EAC4 PO; +VIT D3 PO; +VIT E PO
== END 2019-07-16 22:37 | disposition home or self-care (01) ==
LOC: HBO 00:12
DX: E11.621 Type 2 diabetes mellitus with foot ulcer (principal); E11.51 Type 2 diabetes mellitus with diabetic peripheral angiopathy without gangrene; L97.523 Non-pressure chronic ulcer of other part of left foot with necrosis of muscle; M86.672 Other chronic osteomyelitis, left ankle and foot; L97.429 Non-pressure chronic ulcer of left heel and midfoot with unspecified severity; Z79.82 Long term (current) use of aspirin; Z79.899 Other long term (current) drug therapy; Z79.4 Long term (current) use of insulin
CPT/HCPCS: 82947; G0277

== ENCOUNTER 2019-07-17 00:22 | Day surgery (SDC) | payer MEDICARE, OTHER | END 2019-07-17 22:46 | disposition home or self-care (01) | LOC: WOUND 00:22 | DX: E11.621 Type 2 diabetes mellitus with foot ulcer (principal); L97.523 Non-pressure chronic ulcer of other part of left foot with necrosis of muscle; L97.429 Non-pressure chronic ulcer of left heel and midfoot with unspecified severity; E11.51 Type 2 diabetes mellitus with diabetic peripheral angiopathy without gangrene; M86.672 Other chronic osteomyelitis, left ankle and foot; J44.9 Chronic obstructive pulmonary disease, unspecified; I10 Essential (primary) hypertension ==

== ENCOUNTER 2019-07-17 00:24 | Day surgery (SDC) | payer MEDICARE, OTHER | END 2019-07-17 22:46 | disposition home or self-care (01) | LOC: HBO 00:24 | DX: E11.621 Type 2 diabetes mellitus with foot ulcer (principal); E11.69 Type 2 diabetes mellitus with other specified complication; L97.523 Non-pressure chronic ulcer of other part of left foot with necrosis of muscle; L97.429 Non-pressure chronic ulcer of left heel and midfoot with unspecified severity; M86.672 Other chronic osteomyelitis, left ankle and foot; E11.51 Type 2 diabetes mellitus with diabetic peripheral angiopathy without gangrene; I73.9 Peripheral vascular disease, unspecified | CPT/HCPCS: 82947; G0277 ==

== ENCOUNTER 2019-07-19 00:12 | Day surgery (SDC) | payer MEDICARE, OTHER | END 2019-07-19 22:41 | disposition home or self-care (01) | LOC: HBO 00:12 | DX: E11.621 Type 2 diabetes mellitus with foot ulcer (principal); L97.523 Non-pressure chronic ulcer of other part of left foot with necrosis of muscle; M86.672 Other chronic osteomyelitis, left ankle and foot; L97.429 Non-pressure chronic ulcer of left heel and midfoot with unspecified severity; E11.51 Type 2 diabetes mellitus with diabetic peripheral angiopathy without gangrene; Z79.899 Other long term (current) drug therapy; Z79.4 Long term (current) use of insulin | CPT/HCPCS: 82947; G0277 ==

== ENCOUNTER 2019-07-20 00:39 | Day surgery (SDC) | payer MEDICARE, OTHER | END 2019-07-20 23:08 | disposition home or self-care (01) | LOC: HBO 00:39 | DX: E11.621 Type 2 diabetes mellitus with foot ulcer (principal); E11.51 Type 2 diabetes mellitus with diabetic peripheral angiopathy without gangrene; L97.523 Non-pressure chronic ulcer of other part of left foot with necrosis of muscle; M86.672 Other chronic osteomyelitis, left ankle and foot; L97.429 Non-pressure chronic ulcer of left heel and midfoot with unspecified severity; Z79.82 Long term (current) use of aspirin; Z79.899 Other long term (current) drug therapy; Z79.4 Long term (current) use of insulin | CPT/HCPCS: 82947; G0277 ==

== ENCOUNTER 2019-07-20 00:42 | Day surgery (SDC) | payer MEDICARE, OTHER | END 2019-07-20 23:08 | disposition home or self-care (01) | LOC: WOUND 00:42 | DX: E11.621 Type 2 diabetes mellitus with foot ulcer (principal); L97.523 Non-pressure chronic ulcer of other part of left foot with necrosis of muscle; M86.672 Other chronic osteomyelitis, left ankle and foot; L97.429 Non-pressure chronic ulcer of left heel and midfoot with unspecified severity; E11.51 Type 2 diabetes mellitus with diabetic peripheral angiopathy without gangrene; Z79.899 Other long term (current) drug therapy; Z79.4 Long term (current) use of insulin ==

== ENCOUNTER 2019-07-23 00:13 | Day surgery (SDC) | payer MEDICARE | END 2019-07-23 22:55 | disposition home or self-care (01) | LOC: HBO 00:13 | DX: E11.621 Type 2 diabetes mellitus with foot ulcer (principal); L97.523 Non-pressure chronic ulcer of other part of left foot with necrosis of muscle; M86.672 Other chronic osteomyelitis, left ankle and foot; L97.429 Non-pressure chronic ulcer of left heel and midfoot with unspecified severity; E11.51 Type 2 diabetes mellitus with diabetic peripheral angiopathy without gangrene; Z79.4 Long term (current) use of insulin | CPT/HCPCS: 82947; G0277 ==

== ENCOUNTER 2019-07-24 00:33 | Day surgery (SDC) | payer MEDICARE | END 2019-07-24 22:34 | disposition home or self-care (01) | LOC: HBO 00:33 | DX: E11.621 Type 2 diabetes mellitus with foot ulcer (principal); L97.523 Non-pressure chronic ulcer of other part of left foot with necrosis of muscle; M86.672 Other chronic osteomyelitis, left ankle and foot; L97.429 Non-pressure chronic ulcer of left heel and midfoot with unspecified severity; E11.51 Type 2 diabetes mellitus with diabetic peripheral angiopathy without gangrene; Z79.4 Long term (current) use of insulin | CPT/HCPCS: 82947; G0277; J2250; J3010 ==

== ENCOUNTER 2019-07-26 00:15 | Day surgery (SDC) | payer MEDICARE | END 2019-07-26 22:40 | disposition home or self-care (01) | LOC: HBO 00:15 | DX: E11.621 Type 2 diabetes mellitus with foot ulcer (principal); L97.523 Non-pressure chronic ulcer of other part of left foot with necrosis of muscle; M86.672 Other chronic osteomyelitis, left ankle and foot; L97.429 Non-pressure chronic ulcer of left heel and midfoot with unspecified severity; Z79.4 Long term (current) use of insulin | CPT/HCPCS: 82947; G0277 ==

== ENCOUNTER 2019-07-27 00:16 | Day surgery (SDC) | payer MEDICARE | END 2019-07-27 22:39 | disposition home or self-care (01) | LOC: HBO 00:16 | DX: E11.621 Type 2 diabetes mellitus with foot ulcer (principal); L97.523 Non-pressure chronic ulcer of other part of left foot with necrosis of muscle; L97.429 Non-pressure chronic ulcer of left heel and midfoot with unspecified severity; M86.672 Other chronic osteomyelitis, left ankle and foot; Z79.82 Long term (current) use of aspirin; Z79.4 Long term (current) use of insulin; Z79.02 Long term (current) use of antithrombotics/antiplatelets; Z79.899 Other long term (current) drug therapy | CPT/HCPCS: 82947; G0277 ==

== ENCOUNTER 2019-07-30 00:23 | Day surgery (SDC) | payer MEDICARE | END 2019-07-30 22:36 | disposition home or self-care (01) | LOC: HBO 00:23 | DX: E11.621 Type 2 diabetes mellitus with foot ulcer (principal); L97.523 Non-pressure chronic ulcer of other part of left foot with necrosis of muscle; M86.672 Other chronic osteomyelitis, left ankle and foot; L97.429 Non-pressure chronic ulcer of left heel and midfoot with unspecified severity; Z79.84 Long term (current) use of oral hypoglycemic drugs | CPT/HCPCS: 82947; G0277 ==

== ENCOUNTER 2019-07-31 00:08 | Day surgery (SDC) | payer MEDICARE, OTHER | END 2019-07-31 22:33 | disposition home or self-care (01) | LOC: WOUND 00:08 | DX: E11.621 Type 2 diabetes mellitus with foot ulcer (principal); L97.523 Non-pressure chronic ulcer of other part of left foot with necrosis of muscle; M86.672 Other chronic osteomyelitis, left ankle and foot; L97.429 Non-pressure chronic ulcer of left heel and midfoot with unspecified severity; Z79.899 Other long term (current) drug therapy; Z79.4 Long term (current) use of insulin ==

== ENCOUNTER 2019-08-01 00:19 | Day surgery (SDC) | payer MEDICARE, OTHER | END 2019-08-01 22:38 | disposition home or self-care (01) | LOC: HBO 00:19 → WOUND 13:41 → HBO 16:02 | DX: E11.621 Type 2 diabetes mellitus with foot ulcer (principal); L97.523 Non-pressure chronic ulcer of other part of left foot with necrosis of muscle; M86.672 Other chronic osteomyelitis, left ankle and foot; L97.429 Non-pressure chronic ulcer of left heel and midfoot with unspecified severity; Z79.899 Other long term (current) drug therapy; Z79.82 Long term (current) use of aspirin; Z79.4 Long term (current) use of insulin; Z79.01 Long term (current) use of anticoagulants | CPT/HCPCS: 82947; G0277 ==

== ENCOUNTER 2019-08-02 00:17 | Day surgery (SDC) | payer MEDICARE, OTHER | END 2019-08-02 22:59 | disposition home or self-care (01) | LOC: HBO 00:17 | DX: Z53.9 Procedure and treatment not carried out, unspecified reason (principal) | CPT/HCPCS: 82947; G0277 ==

== ENCOUNTER 2019-08-07 00:15 | Day surgery (SDC) | payer MEDICARE | END 2019-08-07 22:41 | disposition home or self-care (01) | LOC: HBO 00:15 | DX: E11.621 Type 2 diabetes mellitus with foot ulcer (principal); L97.523 Non-pressure chronic ulcer of other part of left foot with necrosis of muscle; M86.672 Other chronic osteomyelitis, left ankle and foot; L98.429 Non-pressure chronic ulcer of back with unspecified severity; Z79.82 Long term (current) use of aspirin; Z79.4 Long term (current) use of insulin; Z79.899 Other long term (current) drug therapy | CPT/HCPCS: 82947; G0277 ==

== ENCOUNTER 2019-08-07 00:16 | Day surgery (SDC) | payer MEDICARE | END 2019-08-07 22:41 | disposition home or self-care (01) | LOC: WOUND 00:16 | DX: E11.621 Type 2 diabetes mellitus with foot ulcer (principal); L97.523 Non-pressure chronic ulcer of other part of left foot with necrosis of muscle; M86.672 Other chronic osteomyelitis, left ankle and foot; L97.429 Non-pressure chronic ulcer of left heel and midfoot with unspecified severity; Z79.899 Other long term (current) drug therapy; Z79.82 Long term (current) use of aspirin; Z79.4 Long term (current) use of insulin; Z79.52 Long term (current) use of systemic steroids | CPT/HCPCS: G0463 ==

== ENCOUNTER 2019-08-08 00:19 | Day surgery (SDC) | payer MEDICARE | END 2019-08-08 22:42 | LOC: HBO 00:19 | DX: Z53.9 Procedure and treatment not carried out, unspecified reason (principal) ==

== ENCOUNTER 2019-08-10 00:17 | Day surgery (SDC) | payer MEDICARE | END 2019-08-10 23:04 | disposition home or self-care (01) | LOC: HBO 00:17 | DX: E11.621 Type 2 diabetes mellitus with foot ulcer (principal); L97.523 Non-pressure chronic ulcer of other part of left foot with necrosis of muscle; L97.429 Non-pressure chronic ulcer of left heel and midfoot with unspecified severity; M86.672 Other chronic osteomyelitis, left ankle and foot | CPT/HCPCS: 82947; G0277 ==

== ENCOUNTER 2019-08-13 00:48 | Day surgery (SDC) | payer MEDICARE | END 2019-08-13 22:39 | disposition home or self-care (01) | LOC: HBO 00:48 | DX: E11.621 Type 2 diabetes mellitus with foot ulcer (principal); L97.523 Non-pressure chronic ulcer of other part of left foot with necrosis of muscle; M86.672 Other chronic osteomyelitis, left ankle and foot; L97.429 Non-pressure chronic ulcer of left heel and midfoot with unspecified severity; Z79.4 Long term (current) use of insulin | CPT/HCPCS: 82947; G0277 ==

== ENCOUNTER 2019-08-15 00:20 | Day surgery (SDC) | payer MEDICARE | END 2019-08-15 22:40 | disposition home or self-care (01) | LOC: HBO 00:20 | DX: E11.621 Type 2 diabetes mellitus with foot ulcer (principal); L97.523 Non-pressure chronic ulcer of other part of left foot with necrosis of muscle; M86.672 Other chronic osteomyelitis, left ankle and foot; L97.429 Non-pressure chronic ulcer of left heel and midfoot with unspecified severity; Z79.02 Long term (current) use of antithrombotics/antiplatelets; Z79.899 Other long term (current) drug therapy; Z79.4 Long term (current) use of insulin | CPT/HCPCS: 82947; G0277 ==

== ENCOUNTER 2019-08-17 00:22 | Day surgery (SDC) | payer MEDICARE | END 2019-08-17 23:07 | disposition home or self-care (01) | LOC: HBO 00:22 | DX: E11.621 Type 2 diabetes mellitus with foot ulcer (principal); L97.523 Non-pressure chronic ulcer of other part of left foot with necrosis of muscle; L97.429 Non-pressure chronic ulcer of left heel and midfoot with unspecified severity; M86.672 Other chronic osteomyelitis, left ankle and foot; Z79.4 Long term (current) use of insulin; Z79.82 Long term (current) use of aspirin; Z79.899 Other long term (current) drug therapy | CPT/HCPCS: 82947; G0277 ==

== ENCOUNTER 2019-08-21 00:09 | Day surgery (SDC) | payer MEDICARE, OTHER | END 2019-08-21 22:49 | disposition home or self-care (01) | LOC: HBO 00:09 | DX: E11.621 Type 2 diabetes mellitus with foot ulcer (principal); L97.523 Non-pressure chronic ulcer of other part of left foot with necrosis of muscle; M86.672 Other chronic osteomyelitis, left ankle and foot; L97.422 Non-pressure chronic ulcer of left heel and midfoot with fat layer exposed; Z79.4 Long term (current) use of insulin | CPT/HCPCS: 82947; G0277 ==

== ENCOUNTER 2019-08-22 00:12 | Day surgery (SDC) | payer MEDICARE, OTHER | END 2019-08-22 22:50 | disposition home or self-care (01) | LOC: HBO 00:12 | DX: E11.621 Type 2 diabetes mellitus with foot ulcer (principal); L97.523 Non-pressure chronic ulcer of other part of left foot with necrosis of muscle; M86.672 Other chronic osteomyelitis, left ankle and foot; L97.422 Non-pressure chronic ulcer of left heel and midfoot with fat layer exposed | CPT/HCPCS: 82947; G0277 ==

== ENCOUNTER 2019-08-23 09:00 | Day surgery (SDC) | payer MEDICARE, OTHER | END 2019-08-31 22:42 | disposition home or self-care (01) | LOC: HBO 09:00 | DX: E11.621 Type 2 diabetes mellitus with foot ulcer (principal); L97.523 Non-pressure chronic ulcer of other part of left foot with necrosis of muscle; M86.672 Other chronic osteomyelitis, left ankle and foot; L97.422 Non-pressure chronic ulcer of left heel and midfoot with fat layer exposed | CPT/HCPCS: 82947; G0277 ==

== ENCOUNTER 2019-08-28 00:15 | Day surgery (SDC) | payer MEDICARE | END 2019-08-28 22:34 | disposition home or self-care (01) | LOC: WOUND 00:15 | DX: E11.621 Type 2 diabetes mellitus with foot ulcer (principal); L97.523 Non-pressure chronic ulcer of other part of left foot with necrosis of muscle; M86.672 Other chronic osteomyelitis, left ankle and foot; L97.422 Non-pressure chronic ulcer of left heel and midfoot with fat layer exposed; J44.9 Chronic obstructive pulmonary disease, unspecified; E11.42 Type 2 diabetes mellitus with diabetic polyneuropathy; E11.51 Type 2 diabetes mellitus with diabetic peripheral angiopathy without gangrene; F17.200 Nicotine dependence, unspecified, uncomplicated; I10 Essential (primary) hypertension; G47.33 Obstructive sleep apnea (adult) (pediatric); Z79.82 Long term (current) use of aspirin; Z79.899 Other long term (current) drug therapy; Z79.4 Long term (current) use of insulin | CPT/HCPCS: Q4133 ==

== ENCOUNTER 2019-08-28 00:17 | Day surgery (SDC) | payer MEDICARE | END 2019-08-28 22:35 | disposition home or self-care (01) | LOC: HBO 00:17 → WOUND 00:17 → HBO 22:35 | DX: E11.621 Type 2 diabetes mellitus with foot ulcer (principal); L97.523 Non-pressure chronic ulcer of other part of left foot with necrosis of muscle; M86.672 Other chronic osteomyelitis, left ankle and foot; L97.422 Non-pressure chronic ulcer of left heel and midfoot with fat layer exposed; Z79.4 Long term (current) use of insulin | CPT/HCPCS: 82947; G0277 ==

== ENCOUNTER 2019-08-29 00:23 | Day surgery (SDC) | payer MEDICARE | END 2019-08-29 22:45 | disposition home or self-care (01) | LOC: HBO 00:23 | DX: E11.621 Type 2 diabetes mellitus with foot ulcer (principal); L97.523 Non-pressure chronic ulcer of other part of left foot with necrosis of muscle; M86.672 Other chronic osteomyelitis, left ankle and foot; L97.422 Non-pressure chronic ulcer of left heel and midfoot with fat layer exposed; Z79.4 Long term (current) use of insulin | CPT/HCPCS: 82947; G0277 ==

== ENCOUNTER 2019-08-30 00:18 | Day surgery (SDC) | payer MEDICARE | END 2019-08-30 23:16 | disposition home or self-care (01) | LOC: HBO 00:18 | DX: E11.621 Type 2 diabetes mellitus with foot ulcer (principal); L97.523 Non-pressure chronic ulcer of other part of left foot with necrosis of muscle; M86.672 Other chronic osteomyelitis, left ankle and foot; L97.422 Non-pressure chronic ulcer of left heel and midfoot with fat layer exposed; Z79.4 Long term (current) use of insulin | CPT/HCPCS: 82947; G0277 ==

== ENCOUNTER 2019-09-04 00:05 | Day surgery (SDC) | payer MEDICARE | END 2019-09-04 22:59 | disposition home or self-care (01) | LOC: WOUND 00:05 | DX: E11.621 Type 2 diabetes mellitus with foot ulcer (principal); M86.672 Other chronic osteomyelitis, left ankle and foot; L97.422 Non-pressure chronic ulcer of left heel and midfoot with fat layer exposed; I10 Essential (primary) hypertension; E11.42 Type 2 diabetes mellitus with diabetic polyneuropathy; E11.51 Type 2 diabetes mellitus with diabetic peripheral angiopathy without gangrene; G47.33 Obstructive sleep apnea (adult) (pediatric); F17.200 Nicotine dependence, unspecified, uncomplicated; Z79.4 Long term (current) use of insulin; Z79.899 Other long term (current) drug therapy; Z79.82 Long term (current) use of aspirin ==

== ENCOUNTER 2019-09-11 00:20 | Day surgery (SDC) | payer MEDICARE, OTHER | END 2019-09-11 22:34 | disposition home or self-care (01) | LOC: WOUND 00:20 | DX: E11.621 Type 2 diabetes mellitus with foot ulcer (principal); L97.425 Non-pressure chronic ulcer of left heel and midfoot with muscle involvement without evidence of necrosis; M86.672 Other chronic osteomyelitis, left ankle and foot; F41.9 Anxiety disorder, unspecified; F32.9 Major depressive disorder, single episode, unspecified; J44.9 Chronic obstructive pulmonary disease, unspecified; I10 Essential (primary) hypertension; G47.33 Obstructive sleep apnea (adult) (pediatric) ==

== ENCOUNTER 2019-09-18 00:15 | Day surgery (SDC) | payer MEDICARE, OTHER | END 2019-09-18 23:06 | disposition home or self-care (01) | LOC: WOUND 00:15 | DX: E11.621 Type 2 diabetes mellitus with foot ulcer (principal); L97.422 Non-pressure chronic ulcer of left heel and midfoot with fat layer exposed; M86.672 Other chronic osteomyelitis, left ankle and foot; E11.42 Type 2 diabetes mellitus with diabetic polyneuropathy; E11.51 Type 2 diabetes mellitus with diabetic peripheral angiopathy without gangrene; J44.9 Chronic obstructive pulmonary disease, unspecified; F41.9 Anxiety disorder, unspecified; F32.9 Major depressive disorder, single episode, unspecified; G47.33 Obstructive sleep apnea (adult) (pediatric); F17.200 Nicotine dependence, unspecified, uncomplicated; I10 Essential (primary) hypertension; Z79.4 Long term (current) use of insulin; Z79.899 Other long term (current) drug therapy; Z79.82 Long term (current) use of aspirin ==

== ENCOUNTER 2019-09-30 08:46 | Emergency (ER) | payer MEDICARE, OTHER ==
[~2019-09-30] VITALS: Ht 160 cm; Wt 105.7 kg
[~2019-09-30 08:46] MED LIST changes: +Aspir 8181 MG PO; -B-122500 MCG SL; +COMBIVENT RESPIM4 G1 INH; +HUMALOG100 UNIT/1 SC; -Humalog100 UNIT/1 SC; +IPRAT-ALBUT 0.5-3 ML NEB; -LEVA1.25 INH; +LEVEMIR100 UNIT/1 SC; +SYMBICORT 160-4.6 GM INH; +VITAMIN B125000 MC1 SL; +VITAMIN D3125 MC4 PO; -VITAMIN D35000 UNIT PO; +VITAMIN E400 UNI1 PO; +Vitamin D2000 UNIT PO; +XOPENEX HFA15 GM INH
[2019-09-30 10:32] LABS: BASOPHILS ABSOLUTE AUTO 0.03 K/mm3 (0.00-0.23); BASOPHILS PERCENT AUTO 0 % (0-2); EOSINOPHILS ABSOLUTE AUTO 0.29 K/mm3 (0.00-0.68); EOSINOPHILS PERCENT AUTO 3 % (0-6); Hematocrit 34.5 % (37.0-53.0); Hemoglobin 10.6 g/dL (13.5-17.5); IMMATURE GRAN ABSOLUTE AUTO 0.07 K/mm3 (0.00-0.10); IMMATURE GRAN PERCENT AUTO 1 % (0-1); LYMPHOCYTES ABSOLUTE AUTO 1.61 K/mm3 (0.84-5.20); LYMPHOCYTES PERCENT AUTO 14 % (21-46); MONOCYTES ABSOLUTE AUTO 0.84 K/mm3 (0.16-1.47); MONOCYTES PERCENT AUTO 7 % (4-13); Mean Corpuscular HGB 27.7 pg (26.0-34.0); Mean Corpuscular HGB Conc 30.7 g/dL (31.5-36.5); Mean Corpuscular Volume 90 fL (80-100); Mean Platelet Volume 9.6 fL (9.1-12.4); NEUTROPHILS ABSOLUTE AUTO 8.61 K/mm3 (1.96-9.15); NEUTROPHILS PERCENT AUTO 75 % (41-73); Platelet Count 294 K/mm3 (150-400); RDW Coefficient Variation 14.1 % (11.7-14.2); RDW Standard Deviation 46.6 fL (35.1-46.3); Red Blood Cell Count 3.82 M/mm3 (4.30-5.90); White Blood Cell Count 11.45 K/mm3 (4.00-11.30)
[2019-09-30 10:43] LABS: Alanine Aminotransfer (ALT/SGP 12 U/L (12-78); Albumin, Blood 2.7 g/dL (3.4-5.0); Albumin/Globulin Ratio 0.6 (0.8-1.8); Alk Phos 50 U/L (50-136); Anion Gap 3 mmol/L (6-16); Aspartate Aminotrans (AST/SGOT 11 U/L (12-37); Bilirubin, Total 0.3 mg/dL (0.1-1.0); Blood Urea Nitrogen 13 mg/dL (8-24); Bun/Creatinine Ratio 13.2 (12.0-20.0); CO2, Blood 30 mmol/L (21-32); Calcium, Blood 8.6 mg/dL (8.5-10.1); Chloride, Blood 103 mmol/L (98-108); Creatinine, Blood 0.99 mg/dL (0.60-1.20); Globulin, Blood 4.4 g/dL (2.2-4.0); Glomerular Filtration Rate >60 (60-); Glucose, Blood 258 mg/dL (70-99); Potassium, Blood 4.2 mmol/L (3.5-5.5); Sodium, Blood 136 mmol/L (136-145); Total Protein, Blood 7.1 g/dL (6.4-8.2)
[2019-09-30] MEDS ORDERED: KEFLEX500 MG PO (12:32)
[2019-10-16] MEDS ORDERED: KEFLEX500 MG PO (10:33)
[2019-10-18] MEDS ORDERED: CEPH500 PO (15:18)
== END 2019-09-30 12:51 | disposition home or self-care (01) ==
LOC: ER 08:46
PROVIDERS: Physician Assistant
DX: L03.031 Cellulitis of right toe (principal); E11.621 Type 2 diabetes mellitus with foot ulcer; L97.519 Non-pressure chronic ulcer of other part of right foot with unspecified severity; Z88.8 Allergy status to other drugs, medicaments and biological substances; Z79.82 Long term (current) use of aspirin; Z79.899 Other long term (current) drug therapy; Z79.52 Long term (current) use of systemic steroids; Z79.4 Long term (current) use of insulin; E11.40 Type 2 diabetes mellitus with diabetic neuropathy, unspecified; J44.9 Chronic obstructive pulmonary disease, unspecified; F41.9 Anxiety disorder, unspecified; G47.30 Sleep apnea, unspecified; F17.210 Nicotine dependence, cigarettes, uncomplicated
CPT/HCPCS: 36415; 73630; 80053; 85025; 96365; 99283-25; A9270-GY; J2543

== ENCOUNTER 2019-10-02 00:14 | Day surgery (SDC) | payer MEDICARE, OTHER ==
[~2019-10-02 00:14] MED LIST changes: +KEFLEX500 MG PO
[2019-10-16] MEDS ORDERED: KEFLEX500 MG PO (10:33)
[2019-10-18] MEDS ORDERED: CEPH500 PO (15:18)
== END 2019-10-02 22:37 | disposition home or self-care (01) ==
LOC: WOUND 00:14
DX: E11.621 Type 2 diabetes mellitus with foot ulcer (principal); E11.51 Type 2 diabetes mellitus with diabetic peripheral angiopathy without gangrene; L97.422 Non-pressure chronic ulcer of left heel and midfoot with fat layer exposed; M86.672 Other chronic osteomyelitis, left ankle and foot; Z79.82 Long term (current) use of aspirin; Z79.899 Other long term (current) drug therapy; Z79.4 Long term (current) use of insulin

== ENCOUNTER 2019-11-13 14:52 | Inpatient (IN) | payer MEDICARE, OTHER ==
[~2019-11-13] VITALS: Ht 162.6 cm; Wt 106.6 kg
--- NOTE | 2019-11-13 15:30 | NUR ---
pt arrived to room via his own wheelchair, with pt, a/0 x 4, cooperative
[2019-11-13] MEDS ORDERED: BACTRIM DS TAB1 EAC1 PO (16:04)
[2019-11-13 18:00] LABS: BASOPHILS ABSOLUTE AUTO 0.04 K/mm3 (0.00-0.23); BASOPHILS PERCENT AUTO 0 % (0-2); EOSINOPHILS ABSOLUTE AUTO 0.23 K/mm3 (0.00-0.68); EOSINOPHILS PERCENT AUTO 1 % (0-6); Hematocrit 27.7 % (37.0-53.0); Hemoglobin 8.4 g/dL (13.5-17.5); IMMATURE GRAN ABSOLUTE AUTO 0.48 K/mm3 (0.00-0.10); IMMATURE GRAN PERCENT AUTO 2 % (0-1); LYMPHOCYTES ABSOLUTE AUTO 2.36 K/mm3 (0.84-5.20); LYMPHOCYTES PERCENT AUTO 11 % (21-46); MONOCYTES ABSOLUTE AUTO 1.37 K/mm3 (0.16-1.47); MONOCYTES PERCENT AUTO 6 % (4-13); Mean Corpuscular HGB 26.1 pg (26.0-34.0); Mean Corpuscular HGB Conc 30.3 g/dL (31.5-36.5); Mean Corpuscular Volume 86 fL (80-100); NEUTROPHILS ABSOLUTE AUTO 17.93 K/mm3 (1.96-9.15); NEUTROPHILS PERCENT AUTO 80 % (41-73); Platelet Count 663 K/mm3 (150-400); RDW Coefficient Variation 15.2 % (11.7-14.2); RDW Standard Deviation 47.4 fL (35.1-46.3); Red Blood Cell Count 3.22 M/mm3 (4.30-5.90); White Blood Cell Count 22.41 K/mm3 (4.00-11.30)
[2019-11-13] MEDS ORDERED: Saw Palmetto500 MG PO (18:30)
[2019-11-13 22:04] LABS: Albumin, Blood 2.1 g/dL (3.4-5.0); Albumin/Globulin Ratio 0.5 (0.8-1.8); Bilirubin, Total 0.4 mg/dL (0.1-1.0); Bun/Creatinine Ratio 20.7 (12.0-20.0); Calcium, Blood 8.5 mg/dL (8.5-10.1); Creatinine, Blood 1.4 mg/dL (0.60-1.20); Globulin, Blood 4.2 g/dL (2.2-4.0); Potassium, Blood 5.4 mmol/L (3.5-5.5); Total Protein, Blood 6.3 g/dL (6.4-8.2)
[2019-11-14] MEDS ORDERED: SYMBICORT 160-4.6 GM INH (01:14)
[2019-11-14] MEDS ORDERED: TRADJENTA5 MG PO (01:15)
[2019-11-14] MEDS ORDERED: GLIP10 PO (01:16)
--- NOTE | 2019-11-14 04:43 | NUR ---
PT VSS T/O NIGHT. PT DENIED PAIN, REP N/T AT BASELINE. DRESSING TO RLE CDI W/REDNESS EXTENDING UP TO LOWER BURT. PT DID REP MILD NAUSEA, EARLY IN SHIFT, NO EMESIS, MED W/ZOFRAN W/REP RELIEF. RLE CT COMPLETED, ABX CONT PER ORDERS. AWAITING ORTHO CONSULT.
[2019-11-14 04:55] LABS: BASOPHILS ABSOLUTE AUTO 0.04 K/mm3 (0.00-0.23); BASOPHILS PERCENT AUTO 0 % (0-2); EOSINOPHILS ABSOLUTE AUTO 0.21 K/mm3 (0.00-0.68); EOSINOPHILS PERCENT AUTO 1 % (0-6); Hematocrit 25.9 % (37.0-53.0); Hemoglobin 7.8 g/dL (13.5-17.5); IMMATURE GRAN ABSOLUTE AUTO 0.35 K/mm3 (0.00-0.10); IMMATURE GRAN PERCENT AUTO 2 % (0-1); LYMPHOCYTES ABSOLUTE AUTO 2.15 K/mm3 (0.84-5.20); LYMPHOCYTES PERCENT AUTO 11 % (21-46); MONOCYTES ABSOLUTE AUTO 1.31 K/mm3 (0.16-1.47); MONOCYTES PERCENT AUTO 7 % (4-13); Mean Corpuscular HGB 25.7 pg (26.0-34.0); Mean Corpuscular HGB Conc 30.1 g/dL (31.5-36.5); Mean Corpuscular Volume 86 fL (80-100); Mean Platelet Volume 8.8 fL (9.1-12.4); NEUTROPHILS ABSOLUTE AUTO 15.58 K/mm3 (1.96-9.15); NEUTROPHILS PERCENT AUTO 79 % (41-73); Platelet Count 607 K/mm3 (150-400); RDW Coefficient Variation 15.2 % (11.7-14.2); RDW Standard Deviation 46.8 fL (35.1-46.3); Red Blood Cell Count 3.03 M/mm3 (4.30-5.90); White Blood Cell Count 19.64 K/mm3 (4.00-11.30)
[2019-11-14 05:16] LABS: Alanine Aminotransfer (ALT/SGP 26 U/L (12-78); Albumin, Blood 1.8 g/dL (3.4-5.0); Albumin/Globulin Ratio 0.3 (0.8-1.8); Alk Phos 84 U/L (50-136); Anion Gap 4 mmol/L (6-16); Aspartate Aminotrans (AST/SGOT 18 U/L (12-37); Bilirubin, Total 0.4 mg/dL (0.1-1.0); Blood Urea Nitrogen 24 mg/dL (8-24); Bun/Creatinine Ratio 20.7 (12.0-20.0); CO2, Blood 29 mmol/L (21-32); Calcium, Blood 8.7 mg/dL (8.5-10.1); Chloride, Blood 100 mmol/L (98-108); Creatinine, Blood 1.16 mg/dL (0.60-1.20); Globulin, Blood 5.4 g/dL (2.2-4.0); Glomerular Filtration Rate >60 (60-); Glucose, Blood 159 mg/dL (70-99); Potassium, Blood 4.9 mmol/L (3.5-5.5); Sodium, Blood 133 mmol/L (136-145); Total Protein, Blood 7.2 g/dL (6.4-8.2)
--- NOTE | 2019-11-14 15:15 | NUR ---
recvd report from previous BRIAN Zhang. pt sleeping in bed, bed rails up x 2, bed in lowest position, call light within reach
--- NOTE | 2019-11-14 15:21 | NUR ---
SUMMARY A&O X4, TOLERATING PO INTAKE, VOIDING WNL. DRSG TO RIGHT FOOT REMAINS C/D/I. ORTHO CONSULT COMPLETE, PT WILL BE NPO AT MIDNIGHT, BLOOD THINNERS WILL BE HELD PER VERBAL ORDER. CALL LIGHT IN REACH. CARE TRANSFERED TO [facility]
--- NOTE | 2019-11-14 18:35 | NUR ---
a/o x 4, pleasant/cooperative, tolerating diet order with no n/v. pt rates pain in the R foot at 4/10. CBG 252 prior to dinner, medicated with insulin per may. IV abx therapy infusing.
[2019-11-15 03:11] LABS: BASOPHILS ABSOLUTE AUTO 0.04 K/mm3 (0.00-0.23); BASOPHILS PERCENT AUTO 0 % (0-2); EOSINOPHILS ABSOLUTE AUTO 0.21 K/mm3 (0.00-0.68); EOSINOPHILS PERCENT AUTO 1 % (0-6); Hematocrit 26.1 % (37.0-53.0); Hemoglobin 7.9 g/dL (13.5-17.5); IMMATURE GRAN ABSOLUTE AUTO 0.39 K/mm3 (0.00-0.10); IMMATURE GRAN PERCENT AUTO 2 % (0-1); LYMPHOCYTES ABSOLUTE AUTO 2.49 K/mm3 (0.84-5.20); LYMPHOCYTES PERCENT AUTO 14 % (21-46); MONOCYTES ABSOLUTE AUTO 1.15 K/mm3 (0.16-1.47); MONOCYTES PERCENT AUTO 7 % (4-13); Mean Corpuscular HGB 25.9 pg (26.0-34.0); Mean Corpuscular HGB Conc 30.3 g/dL (31.5-36.5); Mean Corpuscular Volume 86 fL (80-100); Mean Platelet Volume 8.8 fL (9.1-12.4); NEUTROPHILS ABSOLUTE AUTO 13.29 K/mm3 (1.96-9.15); NEUTROPHILS PERCENT AUTO 76 % (41-73); Platelet Count 624 K/mm3 (150-400); RDW Coefficient Variation 15.2 % (11.7-14.2); RDW Standard Deviation 47.1 fL (35.1-46.3); Red Blood Cell Count 3.05 M/mm3 (4.30-5.90); White Blood Cell Count 17.57 K/mm3 (4.00-11.30)
[2019-11-15 03:29] LABS: Albumin, Blood 1.8 g/dL (3.4-5.0); Anion Gap 4 mmol/L (6-16); Blood Urea Nitrogen 25 mg/dL (8-24); Bun/Creatinine Ratio 22.9 (12.0-20.0); CO2, Blood 29 mmol/L (21-32); Calcium, Blood 8.7 mg/dL (8.5-10.1); Chloride, Blood 105 mmol/L (98-108); Creatinine, Blood 1.09 mg/dL (0.60-1.20); Glomerular Filtration Rate >60 (60-); Glucose, Blood 151 mg/dL (70-99); Phosphorus, Blood 3.8 mg/dL (2.5-4.9); Potassium, Blood 4.8 mmol/L (3.5-5.5); Sodium, Blood 138 mmol/L (136-145)
[2019-11-15 03:31] LABS: Vancomycin, Trough 16.6 ug/mL (5.0-10.0)
--- NOTE | 2019-11-15 04:22 | NUR ---
SHIFT SUMMARY PT RESTED WELL T/O NIGHT. AAOX4. NPO THIS AM FOR PROCEDURE. PAIN CONTROLLED WITH NORCO. NO NAUSEA/EMESIS. SOB WITH MINIMAL EXERTION, BREATHING TX WITH SOME EFFECT, REFUSES CPAP. DRESSING TO RIGHT FOOT C/D/I. NO ACUTE CHANGES THIS SHIFT. PT RESTING AT THIS TIME WITH CALL LIGHT IN REACH.
--- NOTE | 2019-11-15 11:11 | NUR ---
PT TRANSPORTED TO [facility]. DR. PATTERSON SEEN PT IN ROOM AND OBTAINED CONSENT. AGREES WITH PLANNED SURGERY. REPORT GIVEN TO KENNETH HAMM RN.
--- NOTE | 2019-11-15 15:27 | NUR ---
SHIFT SUMMARY PATIENT HAS BEEN ALERT AND ORIENTED THROUGHOUT THIS SHIFT. PATIENT'S SPOUSE IN THE ROOM THROUGH THE MORNING. PATIENT TO SURGERY FOR BKA THIS SHIFT. PATIENT OUT OF SURGERY WITH SEVERE PAIN. ONCOMING NURSE WORKING TO RESOLVE PATIENT'S PAIN. PATIENT SITTING UP IN BED EATING JELLO.
--- NOTE | 2019-11-15 20:48 | NUR ---
OFFERED SNACK AND PM CARE SET UP.
--- NOTE | 2019-11-16 04:40 | NUR ---
SHIFT SUMMARY POD#1 RIGHT BKA. AAOX4. DISCOMFORT DECREASED WITH 1 NORCO TID + 1MG IV DILAUDID Q2H, PAIN INCREASES EASILY WITH MINIMAL MOVEMENT. NO NAUSEA/EMESIS. DRESSING TO RIGHT STUMP C/D/I. GOOD PO INTAKE + OUTPUT. WEANED TO 1L VIA NC THIS AM. TELEMETRY IN PLACE, NSR TO ST 80s TO 100s. PT WITH MINIMAL REST THIS SHIFT R/T INCREASED ANXIETY REGARDING STUMP SURGICAL SITE. ANXIETY DECREASED WITH CONVERSATION + REASSURANCE. PT CURRENTLY SITTING UP IN BED WATCHING TV WITH CALL LIGHT IN REACH.
--- NOTE | 2019-11-16 09:40 | NUR ---
PT OOB INTO WC
[2019-11-16 09:50] LABS: Hematocrit 22.1 % (37.0-53.0); Hemoglobin 6.6 g/dL (13.5-17.5); Mean Corpuscular HGB 26.4 pg (26.0-34.0); Mean Corpuscular HGB Conc 29.9 g/dL (31.5-36.5); Mean Corpuscular Volume 88 fL (80-100); Mean Platelet Volume 8.9 fL (9.1-12.4); NRBC ABSOLUTE 0.03 K/mm3 (0.00-0.02); NRBC Auto 0.2 /100 WBC (0.0-0.2); Platelet Count 620 K/mm3 (150-400); RDW Coefficient Variation 15.4 % (11.7-14.2); RDW Standard Deviation 49.8 fL (35.1-46.3)
[2019-11-16 10:19] LABS: Anion Gap 6 mmol/L (6-16); Blood Urea Nitrogen 28 mg/dL (8-24); Bun/Creatinine Ratio 24.1 (12.0-20.0); CO2, Blood 26 mmol/L (21-32); Calcium, Blood 8.6 mg/dL (8.5-10.1); Chloride, Blood 104 mmol/L (98-108); Creatinine, Blood 1.16 mg/dL (0.60-1.20); Glomerular Filtration Rate >60 (60-); Glucose, Blood 201 mg/dL (70-99); Phosphorus, Blood 4.7 mg/dL (2.5-4.9); Potassium, Blood 5.4 mmol/L (3.5-5.5); Sodium, Blood 136 mmol/L (136-145)
--- NOTE | 2019-11-16 11:46 | NUR ---
DR QUINTANILLA BY TO SEE PT RE IGGY PO PAIN MEDS
--- NOTE | 2019-11-16 13:30 | NUR ---
pt working with therapy greg silvestre to see pt carlos he have 1 unit prbc
--- NOTE | 2019-11-16 13:38 | NUR ---
MARC BY TO SEE PT REQ I CALL DR QUINTANILLA RE PT GETTING A UNIT OF PRBC ALSO ASKED MARC RE PT THINNER TO REMAIN ON PT TO GET 1 UNIT AND MONITOR FOR VOLUME OVERLOAD IF SOB WILL NOTIFY DR ISRAEL FLOWER
--- NOTE | 2019-11-16 18:20 | NUR ---
prbc done pt stated he is sob ls dim no crackles pt stated after his meal he has trouble breathing stated it is not r/t the blood asked pt if i need to call rt for neb tx stated no
[2019-11-17 03:05] LABS: Hemoglobin 6.9 g/dL (13.5-17.5); Mean Corpuscular HGB 27.1 pg (26.0-34.0); Mean Corpuscular HGB Conc 31.4 g/dL (31.5-36.5); Mean Corpuscular Volume 86 fL (80-100); Mean Platelet Volume 8.3 fL (9.1-12.4); NRBC ABSOLUTE 0.07 K/mm3 (0.00-0.02); NRBC Auto 0.4 /100 WBC (0.0-0.2); Platelet Count 523 K/mm3 (150-400); RDW Coefficient Variation 15.1 % (11.7-14.2); RDW Standard Deviation 47.3 fL (35.1-46.3); Red Blood Cell Count 2.55 M/mm3 (4.30-5.90); White Blood Cell Count 19.19 K/mm3 (4.00-11.30)
[2019-11-17 03:27] LABS: Vancomycin, Trough 25.6 ug/mL (5.0-10.0)
--- NOTE | 2019-11-17 06:12 | NUR ---
SHIFT SUMMARY POD 2 RIGHT BKA, STUMP SOCK C/D/I W/OUT ANY SHADOWING NOTED. STUMP ELEVATED ON PILLOWS. PT ABLE TO REPOSITION SELF IN BED WITH MIN ASSISTANCE. PT CONT TO HAVE POOR PO INTAKE DESPITE ENCOURAGEMENT. MEDICATED WITH 2 NORCO PER EMAR. PT REPORTS PHANTOM PAIN IN RLE. USING URINAL APPROPRIATELY, VOIDING SMALL AMOUNTS EACH TIME. PT WORKED WITH THERAPY YESTERDAY PER DAY NURSE. REQUESTED ONE BREATHING TX, DENIES SOB. SEE DAY RN NOTE R/T RBC INFUSION. CRITICAL VANCO TROUGH OF 25.6, PHARMACY NOTIFIED. PT ANXIOUS AT TIMES BUT CALMS DOWN WITH REASSURANCE AND DISTRACTION EASILY. IS CURRENTLY RESTING IN BED WITH CALL LIGHT IN REACH. AWAITING LABS. WILL CONT TO MONITOR FOR CHANGES IN PATIENT'S CONDITION AND GIVE REPORT TO ONCOMING RN.
[2019-11-17 10:23] LABS: International Normalized Ratio 1.07; Prothrombin Time Results 11.4 Sec (9.7-11.5)
[2019-11-17 10:27] LABS: Percent Saturation 12.8 % (20.0-50.0)
[2019-11-17 10:42] LABS: Alanine Aminotransfer (ALT/SGP 25 U/L (12-78); Albumin, Blood 1.8 g/dL (3.4-5.0); Albumin/Globulin Ratio 0.4 (0.8-1.8); Alk Phos 67 U/L (50-136); Anion Gap 5 mmol/L (6-16); Aspartate Aminotrans (AST/SGOT 39 U/L (12-37); Bilirubin, Total 0.2 mg/dL (0.1-1.0); Blood Urea Nitrogen 23 mg/dL (8-24); Bun/Creatinine Ratio 21.5 (12.0-20.0); CO2, Blood 28 mmol/L (21-32); Calcium, Blood 8.2 mg/dL (8.5-10.1); Chloride, Blood 105 mmol/L (98-108); Creatinine, Blood 1.07 mg/dL (0.60-1.20); Globulin, Blood 4.5 g/dL (2.2-4.0); Glomerular Filtration Rate >60 (60-); Glucose, Blood 103 mg/dL (70-99); Potassium, Blood 4.4 mmol/L (3.5-5.5); Sodium, Blood 138 mmol/L (136-145); Total Protein, Blood 6.3 g/dL (6.4-8.2)
--- NOTE | 2019-11-17 15:10 | NUR ---
assumed care of pt following recving report from previous RN Patria. pt sitting up in bed watching television, bed in lowest position, bed rails up. blood transfusion flush complete.
[2019-11-17 16:25] LABS: Hematocrit 25.9 % (37.0-53.0); Hemoglobin 7.9 g/dL (13.5-17.5)
[2019-11-17 16:44] LABS: Vancomycin, Random 14.1 ug/mL
[2019-11-17] MEDS ORDERED: Norco 10-325 T1 EACH PO (17:30)
[2019-11-17] MEDS ORDERED: ATOR20 PO (17:36)
[2019-11-17] MEDS ORDERED: FOLI1 PO (17:37)
[2019-11-17] MEDS ORDERED: MIRALAX17 GM PO (17:37)
--- NOTE | 2019-11-17 17:39 | NUR ---
PT REFUSING PROAIR. DOES NOT WANT CALLED IN TO PHARMACY.
--- NOTE | 2019-11-17 18:09 | NUR ---
provided pt and with discharge teaching teaching, printed material, peripheral IV removed WNL. pt and state understanding of discharge instruction. Medications called to [facility] per pt's request. pt awaiting wheelchair transport, sitting up in his own wheelchair, dressed. pt's transporting pt's belongings to their home and will meet pt's transport home.
--- NOTE | 2019-11-17 18:55 | NUR ---
pt transported home via wheelchair van.
== END 2019-11-17 19:00 | disposition home health service (06) | DRG 475 ==
LOC: SURS 14:52
PROVIDERS: Internal Medicine; Orthopaedic Surgery; ADMIT Internal Medicine
PROC: 0Y6H0Z1 Detachment at Right Lower Leg, High, Open Approach (ICD-10-PCS; principal; 2019-11-15 11:30)
PROC: 30233N1 Transfusion of Nonautologous Red Blood Cells into Peripheral Vein, Percutaneous Approach (ICD-10-PCS; 2019-11-16)
DX: T87.43 Infection of amputation stump, right lower extremity (principal); E11.52 Type 2 diabetes mellitus with diabetic peripheral angiopathy with gangrene; I96 Gangrene, not elsewhere classified; D62 Acute posthemorrhagic anemia; Z68.41 Body mass index [BMI] 40.0-44.9, adult; Z20.828 Contact with and (suspected) exposure to other viral communicable diseases; E11.42 Type 2 diabetes mellitus with diabetic polyneuropathy; E66.01 Morbid (severe) obesity due to excess calories; G47.33 Obstructive sleep apnea (adult) (pediatric); J44.9 Chronic obstructive pulmonary disease, unspecified; N40.0 Benign prostatic hyperplasia without lower urinary tract symptoms; K21.9 Gastro-esophageal reflux disease without esophagitis; I25.10 Atherosclerotic heart disease of native coronary artery without angina pectoris; F41.9 Anxiety disorder, unspecified; F32.9 Major depressive disorder, single episode, unspecified; D52.9 Folate deficiency anemia, unspecified; Z95.5 Presence of coronary angioplasty implant and graft; Z89.431 Acquired absence of right foot; Z87.891 Personal history of nicotine dependence; Z91.19 Patient's noncompliance with other medical treatment and regimen; Z88.5 Allergy status to narcotic agent; Z88.8 Allergy status to other drugs, medicaments and biological substances; Z79.02 Long term (current) use of antithrombotics/antiplatelets; Z79.82 Long term (current) use of aspirin; Z79.4 Long term (current) use of insulin; Z79.891 Long term (current) use of opiate analgesic; Z79.51 Long term (current) use of inhaled steroids; Z79.899 Other long term (current) drug therapy
CPT/HCPCS: 36415; 36430; 73701; 80053; 80069; 80202; 82565; 82607; 82728; 82746; 82947; 83540; 83550; 85014; 85018; 85025; 85027; 85610; 85651; 85730; 86140; 86850; 86900; 86901; 86923; 87040; 88307; 94640; 94760; 97110; 97161; 97166; A9270; A9270-GY; J0696; J1170; J1644; J2250; J2405; J2704; J2765; J3010; J3370; J7050; J7120; J7512; P9016; Q9967; U0002

== ENCOUNTER 2019-12-17 01:13 | Day surgery (SDC) | payer MEDICARE ==
[~2019-12-17 01:13] MED LIST changes: +ATOR20 PO; +BACTRIM DS TAB1 EAC1 PO; +FOLI1 PO; +MIRALAX17 GM PO
== END 2019-12-17 23:16 | disposition home or self-care (01) ==
LOC: WOUND 01:13
DX: E11.621 Type 2 diabetes mellitus with foot ulcer (principal); J44.9 Chronic obstructive pulmonary disease, unspecified; E11.42 Type 2 diabetes mellitus with diabetic polyneuropathy; I10 Essential (primary) hypertension; E11.51 Type 2 diabetes mellitus with diabetic peripheral angiopathy without gangrene; G47.33 Obstructive sleep apnea (adult) (pediatric); Z79.4 Long term (current) use of insulin; Z88.8 Allergy status to other drugs, medicaments and biological substances; Z88.1 Allergy status to other antibiotic agents; Z87.891 Personal history of nicotine dependence; Z88.5 Allergy status to narcotic agent; L97.519 Non-pressure chronic ulcer of other part of right foot with unspecified severity; Z79.899 Other long term (current) drug therapy
CPT/HCPCS: G0463

== ENCOUNTER 2020-12-17 17:33 | Emergency (ER) | payer OTHER ==
[~2020-12-17] VITALS: Ht 160 cm; Wt 112.9 kg
[2020-12-17] MEDS ORDERED: DOXA4 PO (18:17)
[2020-12-17] MEDS ORDERED: TRADJENTA5 MG PO (18:17)
[2020-12-17] MEDS ORDERED: SYMBICORT 160-4.6 GM INH (18:18)
[2020-12-17] MEDS ORDERED: FARXIGA10 MG PO (18:19)
[2020-12-17] MEDS ORDERED: XOPENEX HFA15 GM INH (18:20)
[2020-12-17 18:36] LABS: BASOPHILS ABSOLUTE AUTO 0.03 K/mm3 (0.00-0.23); BASOPHILS PERCENT AUTO 0 % (0-2); EOSINOPHILS ABSOLUTE AUTO 0.45 K/mm3 (0.00-0.68); EOSINOPHILS PERCENT AUTO 4 % (0-6); Hematocrit 36.3 % (37.0-53.0); Hemoglobin 11.1 g/dL (13.5-17.5); IMMATURE GRAN ABSOLUTE AUTO 0.06 K/mm3 (0.00-0.10); IMMATURE GRAN PERCENT AUTO 1 % (0-1); LYMPHOCYTES ABSOLUTE AUTO 2.56 K/mm3 (0.84-5.20); LYMPHOCYTES PERCENT AUTO 22 % (21-46); MONOCYTES ABSOLUTE AUTO 0.92 K/mm3 (0.16-1.47); MONOCYTES PERCENT AUTO 8 % (4-13); Mean Corpuscular HGB 26.7 pg (26.0-34.0); Mean Corpuscular HGB Conc 30.6 g/dL (31.5-36.5); Mean Corpuscular Volume 87 fL (80-100); Mean Platelet Volume 9.1 fL (9.1-12.4); NEUTROPHILS ABSOLUTE AUTO 7.88 K/mm3 (1.96-9.15); NEUTROPHILS PERCENT AUTO 66 % (41-73); Platelet Count 262 K/mm3 (150-400); RDW Coefficient Variation 17.6 % (11.7-14.2); Red Blood Cell Count 4.16 M/mm3 (4.30-5.90)
[2020-12-17 19:01] LABS: Albumin/Globulin Ratio 0.7 (0.8-1.8); Bilirubin, Total 0.2 mg/dL (0.1-1.0); Bun/Creatinine Ratio 12.3 (12.0-20.0); Calcium, Blood 9.2 mg/dL (8.5-10.1); Creatinine, Blood 1.38 mg/dL (0.60-1.20); Globulin, Blood 4.3 g/dL (2.2-4.0); Potassium, Blood 4.3 mmol/L (3.5-5.5); Total Protein, Blood 7.3 g/dL (6.4-8.2)
[2020-12-17 19:26] LABS: Source, Urine Clean Catch
[2020-12-17 19:35] LABS: Bilirubin, Urine Neg (Neg); Blood, Urine 5+ (Neg); Glucose Qualitative, Urine 4+ (Neg); Ketones, Urine Neg (Neg); Leukocyte Esterase, Urine 3+ (Neg); Nitrite, Urine Pos (Neg); Protein, Urine 3+ (Neg); Specific Gravity, Urine 1.015 (1.003-1.022); Urobilinogen, Urine NORM (Normal)
[2020-12-17 19:52] LABS: Appearance, Urine Hazy (Clear); Color, Urine Red (P-Yellow)
[2020-12-17 19:55] LABS: Bacteria Few /hpf; Red Blood Cells, Urine TNTC /hpf (0-2); Squamous Epithelial Cells Rare /hpf (Few)
[2020-12-17] MEDS ORDERED: CEPH500 PO (20:02)
== END 2020-12-17 20:15 | disposition home or self-care (01) ==
LOC: ER 17:33
PROVIDERS: Physician Assistant
DX: N39.0 Urinary tract infection, site not specified (principal); R31.9 Hematuria, unspecified; D64.9 Anemia, unspecified; D72.829 Elevated white blood cell count, unspecified; Z88.8 Allergy status to other drugs, medicaments and biological substances; Z79.4 Long term (current) use of insulin; Z79.82 Long term (current) use of aspirin; Z79.52 Long term (current) use of systemic steroids; E11.40 Type 2 diabetes mellitus with diabetic neuropathy, unspecified; E11.51 Type 2 diabetes mellitus with diabetic peripheral angiopathy without gangrene; G47.33 Obstructive sleep apnea (adult) (pediatric); J44.9 Chronic obstructive pulmonary disease, unspecified; K21.9 Gastro-esophageal reflux disease without esophagitis; Z87.891 Personal history of nicotine dependence
CPT/HCPCS: 36415; 80053; 81001; 85025; 87086; 99283; A9270

== ENCOUNTER 2020-12-25 08:35 | Day surgery (SDC) | payer OTHER ==
[~2020-12-25] VITALS: Ht 160 cm; Wt 112.2 kg
[~2020-12-25 08:35] MED LIST changes: +DOXA4 PO; +FARXIGA10 MG PO
--- NOTE | 2020-12-25 09:28 | NUR ---
12/25/20 0928 Emy Means CALL LIGHT WITHIN REACH. PLEDGETT AT 0910 WITH TETRACAINE EYEDROPS
== END 2020-12-25 11:16 | disposition home or self-care (01) ==
LOC: ORSCSDS 08:35
PROVIDERS: Ophthalmology
PROC: 08RK3JZ Replacement of Left Lens with Synthetic Substitute, Percutaneous Approach (ICD-10-PCS; principal; 2020-12-25 09:45)
DX: H25.12 Age-related nuclear cataract, left eye (principal); H21.81 Floppy iris syndrome; I25.10 Atherosclerotic heart disease of native coronary artery without angina pectoris; I10 Essential (primary) hypertension; J44.9 Chronic obstructive pulmonary disease, unspecified; E11.9 Type 2 diabetes mellitus without complications; F41.8 Other specified anxiety disorders; Z79.02 Long term (current) use of antithrombotics/antiplatelets; Z79.82 Long term (current) use of aspirin; Z79.899 Other long term (current) drug therapy; E66.01 Morbid (severe) obesity due to excess calories; Z68.41 Body mass index [BMI] 40.0-44.9, adult
CPT/HCPCS: 82947; J2001; J2250; J3010; J3301; J7040; V2632

== ENCOUNTER 2021-04-14 20:25 | Inpatient (IN) | payer OTHER ==
[~2021-04-14] VITALS: Ht 160 cm; Wt 111.6 kg
[~2021-04-14 20:25] MED LIST changes: -ATOR20 PO; +ATOR80 PO; +TOCO1000 PO; +VITAMIN B125000 MC1 PO; -VITAMIN B125000 MC1 SL; +VITAMIN D310 MC4 PO; -VITAMIN D3125 MC4 PO; -VITAMIN E400 UNI1 PO
[2021-04-14 21:13] LABS: BASOPHILS ABSOLUTE AUTO 0.03 K/mm3 (0.00-0.23); BASOPHILS PERCENT AUTO 0 % (0-2); EOSINOPHILS ABSOLUTE AUTO 0.09 K/mm3 (0.00-0.68); EOSINOPHILS PERCENT AUTO 1 % (0-6); Hematocrit 36.8 % (37.0-53.0); Hemoglobin 11.4 g/dL (13.5-17.5); IMMATURE GRAN PERCENT AUTO 1 % (0-1); LYMPHOCYTES ABSOLUTE AUTO 0.39 K/mm3 (0.84-5.20); LYMPHOCYTES PERCENT AUTO 4 % (21-46); MONOCYTES ABSOLUTE AUTO 0.94 K/mm3 (0.16-1.47); MONOCYTES PERCENT AUTO 11 % (4-13); Mean Corpuscular HGB 28.2 pg (26.0-34.0); Mean Corpuscular Volume 91 fL (80-100); Mean Platelet Volume 9.3 fL (9.1-12.4); NEUTROPHILS ABSOLUTE AUTO 7.44 K/mm3 (1.96-9.15); NEUTROPHILS PERCENT AUTO 83 % (41-73); NRBC ABSOLUTE 0.02 K/mm3 (0.00-0.02); NRBC Auto 0.2 /100 WBC (0.0-0.2); Platelet Count 261 K/mm3 (150-400); RDW Coefficient Variation 16.5 % (11.7-14.2); RDW Standard Deviation 55.2 fL (35.1-46.3); Red Blood Cell Count 4.04 M/mm3 (4.30-5.90); White Blood Cell Count 8.99 K/mm3 (4.00-11.30)
[2021-04-14 21:46] LABS: Alanine Aminotransfer (ALT/SGP 15 U/L (12-78); Albumin, Blood 3.3 g/dL (3.4-5.0); Albumin/Globulin Ratio 0.9 (0.8-1.8); Alk Phos 61 U/L (50-136); Anion Gap 8 mmol/L (6-16); Aspartate Aminotrans (AST/SGOT 17 U/L (12-37); Bilirubin, Total 0.4 mg/dL (0.1-1.0); Blood Urea Nitrogen 16 mg/dL (8-24); Bun/Creatinine Ratio 15.1 (12.0-20.0); CO2, Blood 30 mmol/L (21-32); Calcium, Blood 8.7 mg/dL (8.5-10.1); Chloride, Blood 101 mmol/L (98-108); Creatinine, Blood 1.06 mg/dL (0.60-1.20); Globulin, Blood 3.5 g/dL (2.2-4.0); Glomerular Filtration Rate >60 (60-); Glucose, Blood 152 mg/dL (70-99); Potassium, Blood 4.4 mmol/L (3.5-5.5); Sodium, Blood 139 mmol/L (136-145); Total Protein, Blood 6.8 g/dL (6.4-8.2); Troponin I 0.064 ng/mL (0.000-0.040)
[2021-04-14 23:14] LABS: Base Excess Venous 8.2 mmol/L; Bicarbonate Venous 30.5 mmol/L (24.0-30.0); PO2 Venous 60.9 mmHg (38-42); pH Blood Venous 7.38 (7.34-7.37)
[2021-04-14] MEDS ORDERED: ATHLETE'S FOO35.4 GM TP (23:40)
[2021-04-14] MEDS ORDERED: Triamcinolone A15 G2 TOP (23:41)
[2021-04-14] MEDS ORDERED: COMBIVENT RESPIM4 G1 (23:41)
[2021-04-14] MEDS ORDERED: XOPENEX HFA15 GM INH (23:42)
[2021-04-14] MEDS ORDERED: MONT10T PO (23:42)
[2021-04-15 03:01] LABS: BASOPHILS ABSOLUTE AUTO 0.02 K/mm3 (0.00-0.23); BASOPHILS PERCENT AUTO 0 % (0-2); EOSINOPHILS PERCENT AUTO 0 % (0-6); Hematocrit 34.8 % (37.0-53.0); Hemoglobin 10.8 g/dL (13.5-17.5); IMMATURE GRAN ABSOLUTE AUTO 0.14 K/mm3 (0.00-0.10); IMMATURE GRAN PERCENT AUTO 2 % (0-1); LYMPHOCYTES ABSOLUTE AUTO 0.35 K/mm3 (0.84-5.20); LYMPHOCYTES PERCENT AUTO 4 % (21-46); MONOCYTES ABSOLUTE AUTO 0.27 K/mm3 (0.16-1.47); MONOCYTES PERCENT AUTO 3 % (4-13); Mean Corpuscular HGB 28.3 pg (26.0-34.0); Mean Corpuscular Volume 91 fL (80-100); Mean Platelet Volume 9.3 fL (9.1-12.4); NEUTROPHILS ABSOLUTE AUTO 8.25 K/mm3 (1.96-9.15); NEUTROPHILS PERCENT AUTO 91 % (41-73); Platelet Count 243 K/mm3 (150-400); RDW Coefficient Variation 16.5 % (11.7-14.2); RDW Standard Deviation 54.7 fL (35.1-46.3); Red Blood Cell Count 3.81 M/mm3 (4.30-5.90); White Blood Cell Count 9.03 K/mm3 (4.00-11.30)
[2021-04-15 03:54] LABS: Anion Gap 6 mmol/L (6-16); Blood Urea Nitrogen 18 mg/dL (8-24); Bun/Creatinine Ratio 17.6 (12.0-20.0); CO2, Blood 31 mmol/L (21-32); Calcium, Blood 8.8 mg/dL (8.5-10.1); Chloride, Blood 101 mmol/L (98-108); Creatinine, Blood 1.02 mg/dL (0.60-1.20); Glomerular Filtration Rate >60 (60-); Glucose, Blood 205 mg/dL (70-99); Potassium, Blood 5.1 mmol/L (3.5-5.5); Sodium, Blood 138 mmol/L (136-145)
--- NOTE | 2021-04-15 06:01 | NUR ---
ADMIT NOTE PT TO FLOOR FROM ED AT 0300. PT ARRIVES STILL DRESSED IN STREET CLOTHES. PT HAS BELOW KNEE AMPUTATION ON R SIDE WITH PROSTHETIC. PT HAS L TOES AMPUTATED. PT HX OF DIABETES, NEUROPATHY, STENTS IN LEGS, COPD, CHF, BPH, AND GERD. PT SOB ON EXERTION. PT HAS BOILS NEAR SCROTUM (PER PT) AND A RED SORE ON HIS LEFT INNER THIGH. PT INSISTS ON STANDING TO USE THE URINAL AND INSISTS ON USING A WALKER TO GET TO THE BATHROOM FOR BOWEL MOVEMENTS. PT SLIGHTLY UNSTEADY ON FEET, BUT ABLE TO GET THERE WITH MINIMAL ASSISTANCE. IS CECILIO [phone]. SHE WANTS TO COME VISIT PT THIS AFTERNOON. FIRST DOSE OF REMDESEVIR GIVEN AT 0300. PT IS COVID POSITIVE.
--- NOTE | 2021-04-15 18:11 | NUR ---
SHIFT SUMMARY PT'S CAME TO ASSIST PT WITH A SHOWER AFTER PT INSISTED SHE WAS THE ONLY ONE WHO COULD HELP HIM WITH HIS SHOWER AND PROSTHETIC. KEEPS RLE PROSTHETIC ON AT ALL TIMES EXCEPT FOR SHOWER. WANTED A 2ND COVID SWAB BECAUSE HE FEELS IT WAS AN INCORRECT RESULT. SPOKE WITH MD BUT NO NEW ORDER. DISCUSSED WITH PT. THIS MORNING REPORTED HE WAS GOING HOME AFTER HE FOUND OUT HIS COULDN'T COME VISIT HIM. SPOKE WITH PT AND THEN ENCOURAGED HIM TO CALL HIS WHICH HE DID. AFTER SPEAKING FOR A FEW MINUTES HE WAS AGREEABLE TO STAYING FOR TODAY.
--- NOTE | 2021-04-16 03:53 | NUR ---
SHIFT SUMMARY NO ACUTE CHANGES TO PT CONDITION AT THIS TIME. PT SATS IN UPPER 90'S ON 3 L O2. PT USES URINAL STANDING UP BESIDE BED INDEPENDENTLY. USES WALKER TO USE TOILET. CALL LIGHT WITHIN REACH. WILL CONTINUE TO MONITOR.
[2021-04-16] MEDS ORDERED: AZIT250 PO (13:42)
[2021-04-16] MEDS ORDERED: MEMA10 PO (13:50)
[2021-04-16] MEDS ORDERED: BUSPIRONE HCL5 M6 PO (13:52)
[2021-04-16] MEDS ORDERED: DECADRON6 M1 PO (14:49)
--- NOTE | 2021-04-16 17:19 | NUR ---
DISCHARGE INSTRUCTIONS COMPLETED AND DISCUSSED WITH PT EXPRESSING UNDERSTANDING. LISTENING IN WELL AND QUESTIONS ANSWERED. O2 DELIVERED BY [facility]. TO [facility] VIA W/C.
== END 2021-04-16 16:22 | disposition home or self-care (01) | DRG 871 ==
LOC: ER 20:25 → MEDS 04-15 02:25
PROVIDERS: Emergency Medicine; Family Medicine; Physician Assistant; ADMIT Internal Medicine
PROC: 5A09357 Assistance with Respiratory Ventilation, Less than 24 Consecutive Hours, Continuous Positive Airway Pressure (ICD-10-PCS; principal; 2021-04-15)
PROC: 8E0ZXY6 Isolation (ICD-10-PCS; 2021-04-15)
PROC: 3E0DX3Z Introduction of Anti-inflammatory into Mouth and Pharynx, External Approach (ICD-10-PCS; 2021-04-15)
DX: A41.89 Other specified sepsis (principal); U07.1 COVID-19; J96.01 Acute respiratory failure with hypoxia; J44.1 Chronic obstructive pulmonary disease with (acute) exacerbation; J44.0 Chronic obstructive pulmonary disease with (acute) lower respiratory infection; I24.8 Other forms of acute ischemic heart disease; Z68.41 Body mass index [BMI] 40.0-44.9, adult; E66.01 Morbid (severe) obesity due to excess calories; Z79.4 Long term (current) use of insulin; E11.51 Type 2 diabetes mellitus with diabetic peripheral angiopathy without gangrene; E11.40 Type 2 diabetes mellitus with diabetic neuropathy, unspecified; G47.33 Obstructive sleep apnea (adult) (pediatric); N40.0 Benign prostatic hyperplasia without lower urinary tract symptoms; K21.9 Gastro-esophageal reflux disease without esophagitis; Z89.511 Acquired absence of right leg below knee; Z90.49 Acquired absence of other specified parts of digestive tract; Z87.891 Personal history of nicotine dependence; Z66 Do not resuscitate; Z88.8 Allergy status to other drugs, medicaments and biological substances; Z79.899 Other long term (current) drug therapy; Z79.82 Long term (current) use of aspirin; Z79.02 Long term (current) use of antithrombotics/antiplatelets
CPT/HCPCS: 36415; 71045; 71260; 80048; 80053; 82803; 82947; 83880; 84145; 84484; 85025; 85379; 93005; 93010; 94640; 94762; 96365-59; 96366-59; 96375-59; 99285-25; A9270; J0248; J1650; J2310; J2930; J3475; J7050; Q9967

== ENCOUNTER → 2021-06-04 | Outpatient (CLI) | payer OTHER ==
[~2021-06-04] MED LIST changes: +ATHLETE'S FOO35.4 GM TP; +BUSPIRONE HCL5 M6 PO; +COMBIVENT RESPIM4 G1; +DECADRON6 M1 PO; +MEMA10 PO; +Triamcinolone A15 G2 TOP
== END | disposition home or self-care (01) ==
LOC: LAB 12:50 → LAB SHORT 12:50
DX: L02.212 Cutaneous abscess of back [any part, except buttock and flank] (principal)
CPT/HCPCS: 87070; 87075; 87077; 87147; 87186; 87205

== ENCOUNTER → 2021-09-08 | Outpatient (CLI) | payer OTHER | END | disposition home or self-care (01) | LOC: LAB 10:20 → LAB SHORT 10:20 | DX: L02.416 Cutaneous abscess of left lower limb (principal) | CPT/HCPCS: 87070; 87077; 87186; 87205 ==